=== PATIENT | female | born 1980 | race African-American/Black ===

== ENCOUNTER 2018-12-09 17:43 | Emergency (ER) | payer BC, OTHER ==
[~2018-12-09] VITALS: Ht 162.6 cm; Wt 95.7 kg
[~2018-12-09 17:43] MED LIST: ASACOL HD800 MG PO; IBUPROFEN600 MG PO; NORCO 10-325 T1 EACH PO; SIMETHICONE80 MG PO
--- OUTSIDE RECORDS SUMMARY | 2018-12-09 17:47 | XMS REPORT | Encounter Summary ---
Author Organization Unknown Address [address] [place] [id number] Phone [phone] Care Team Providers Care Panel Sewer Name Role Phone Dr. Ayaan Rasheed 3 [phone] Reason for Visit Ulcerative colitis Instructions 1. Body mass index 30+ - obesity body mass index: care instructions learning about healthy weight 2. Sickle cell trait 3. Ulcerative colitis 4. Insomnia amitriptyline 50 mg tablet Discussion Note: None recorded. Plan of Care Reminders Provider Appointments None recorded. Lab None recorded. Referral None recorded. Procedures None recorded. Surgeries None recorded. Imaging None recorded. Medications Name Start Date amitriptyline amitriptyline 50 mg tablet Take 1 tablet every day by oral route. mesalamine mesalamine 800 mg tablet,delayed release Take 1 tablet 3 times a day by oral route. Medications Administered None recorded. Vitals Height Weight BMI Blood Pressure 5 ft 3.5 in 211 lbs 36.8 kg/m2 130/70 mm[Hg] Lab Results None recorded. Allergies Code Code System Name Reaction Severity Status Onset 706399 RxNorm Augmentin Hives Moderate to Severe Active Problems Name Status Onset Date Source Ulcerative Colitis Active 12/03/2018 Procedures Date Name Performed by 05/11/2018 Appendectomy Information not available 05/11/2016 Hysterectomy (Partial) Information not available 05/11/2009 Tubal Ligation Information not available Vaccine List Vaccine Type tetanus toxoid, unspecified formulation 05/11/2015 Social History Tobacco Smoking Status Never Smoker Past Encounters 12/03/2018 Body Mass Index 30+ - Obesity; Sickle Cell Trait; Ulcerative Colitis; Insomnia Ayaan Rasheed MD: [facility] [address] [facility] [address], [place] [address], Ph. History of Present Illness Note:PT here to establish care.<div>She was diagnosed with Ulcerative colitis in 2000. Its under control. She is following with gastro Dr Tran. She did colonoscopy in which was good. </div><div>she has hx anxiety , also insomnia. she takes amitriptyline</div> Review of Systems:ROS as noted in the HPI Review of Systems None recorded. Physical Exam General Adult Exam (Female) Reported By: Patient Operations Boardman: Operations Boardman: present Constitutional: General Appearance: healthy-appearing Psychiatric: Insight: good judgement. Mental Status: active and alert. Orientation: to time Head: Head: normocephalic Eyes: Lids and Conjunctivae: non-injected. Pupils: PERRLA. EOM: EOMI ENMT: Ears: no lesions on external ear. Oropharynx: moist mucous membranes Neck: Neck: supple. Lymph Nodes: no cervical LAD. Thyroid: no enlargement Lungs: Respiratory effort: no dyspnea. Auscultation: breath sounds normal Cardiovascular: Heart Auscultation: RRR. Pulses including femoral / pedal: normal throughout Abdomen: Bowel Sounds: normal. Inspection and Palpation: soft, non-distended, no tenderness. Hernia: none palpable Musculoskeletal:: Motor Strength and Tone: normal motor strength. Joints, Bones, and Muscles: normal movement of all extremities. Extremities: no edema Neurologic: Gait and Station: normal gait. Cranial Nerves: grossly intact. Sensation: grossly intact. Reflexes: DTRs 2+ bilaterally throughout. Coordination and Cerebellum: no tremor Skin: Inspection and palpation: no rash. Nails: normal Back: Thoracolumbar Appearance: normal curvature
--- OUTSIDE RECORDS SUMMARY | 2018-12-09 17:47 | XMS REPORT ---
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 Allergies, Adverse Reactions, Alerts Allergy Name Allergy Type Status Severity Reaction(s) Onset Date Inactive Date Treating Clinician Comments amoxicillin trihydrate DA Active MO 2018-10-28 00:00:00 potassium clavulanate DA Active MO 2018-10-28 00:00:00 amoxicillin trihydrate DA Active MO 2018-05-21 00:00:00 potassium clavulanate DA Active MO 2018-05-21 00:00:00 amoxicillin trihydrate DA Active MO 2012-12-28 00:00:00 potassium clavulanate DA Active MO 2012-12-28 00:00:00 Medications This patient has no known medications. 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 History of inflammatory bowel disease/UC. Previous hysterectomy. Previous appendectomy. COMPARISON EXAM(S): Previous CT scans of 10/28/2018, 05/30/2018, and 05/21/2018. TECHNIQUE: Axial images were obtained of the abdomen and pelvis from the domes of the diaphragm to the symphysis pubis following intravenous injection of 100 ml's Isovue and oral administration of 10 ml's Gastrografin diluted with water. Coronal and sagittal reconstructions were generated. DOSE: CT imaging performed at this location utilizes radiation dose optimization technique which includes one or more of the followin) Automated exposure control; 2) Adjustment of the mA and/or kV according to patient's size; 3) Use of iterative reconstruction techniques. DLP (mGy-cm): 572 FINDINGS: The lung bases and pleural spaces are clear. The liver, spleen, adrenal glands, pancreas and kidneys have a normal appearance. The gallbladder is normal in size. The previously identified regions of bowel wall thickening in the colon have all resolved. The colonic wall and small bowel wall are normal on the current examination. No evidence of bowel dilatation. No free air, free fluid or peritoneal abscesses. Since 10/28/2018, a right adnexal cyst has developed measuring up to 6 cm. Anterior abdominal wall is intact. Bone windows show no suspicious blastic or lytic lesions. IMPRESSION: 1. Right adnexal cyst measuring up to 6 cm is new compared to 10/28/2018. This likely represents a follicular cyst. Follow-up pelvic ultrasound is recommended in 6-9 weeks to make certain that this resolves. 2. Resolution of colonic wall thickening when compared to prior studies dating back to May 2018. 3. Prior appendectomy. 4. Otherwise unremarkable examination of the abdomen and pelvis. 5. No other change compared to 10/28/2018. PAGE 1 Signed Report (CONTINUED) Name: YAYA SHIN [facility] : 1980 Age/S: 38 / F [address] [place] [address] Unit #: [id number] Loc: [place] [address] Phys: Glenna Mason NP Acct: [id number] Dis Date: Status: REG ER PHONE #: [phone] Exam Date: 11/19/2018 181 FAX #: [phone] Reason: upper abd pain, h/o ibs EXAMS: CPT CODE: [id number] CT ABD PELVIS W/CONT 33720 <Continued> SL:01 at 1846 Reported and signed by: Sudheer Harrison M.D. CC: Ancelmo Jaimes MD; Glenna Mason NP Technologist:RT Noy(R) CTDI: DLP: Trnscb Date/Time: 11/19/2018 (1845) [email or web address] Orig Print D/T: S: 11/19/2018 (1849) PAGE 2 Signed Report CBC W/AUTO DIFF 2018-11-19 16:36:00 WHITE BLOOD CELL (test code=WBC) 15.65 x10 3/uL 4.5-11.0 RED BLOOD CELL (test code=RBC) 4.57 x10 6/uL 3.54-5.02 HEMOGLOBIN (test code=HGB) 10.5 g/dL 11.0-15.0 HEMATOCRIT (test code=HCT) 33.3 % 33.0-45.0 MEAN CELL VOLUME (test code=MCV) 72.9 fL 81.0-99.0 MEAN CELL HGB (test code=MCH) 23.0 pg 27.0-33.0 MEAN CELL HGB CONCETRATION (test code=MCHC) 31.5 g/dL 33.0-37.0 RED CELL DISTRIBUTION WIDTH CV (test code=RDW) 18.3 % 11.5-14.5 RED CELL DISTRIBUTION WIDTH SD (test code=RDW-SD) 47.8 fL 37.0-54.0 PLATELET COUNT (test code=PLT) 388 x10 3/uL 150-400 MEAN PLATELET VOLUME (test code=MPV) 9.5 fL 7.0-9.0 NEUTROPHIL % (test code=NT%) 65.4 % 56.0-77.0 IMMATURE GRANULOCYTE % (test code=IG%) 0.6 % 0.0-2.0 LYMPHOCYTE % (test code=LY%) 23.4 % 14.0-32.0 MONOCYTE % (test code=MO%) 8.6 % 4.8-9.0 EOSINOPHIL % (test code=EO%) 1.6 % 0.3-3.7 BASOPHIL % (test code=BA%) 0.4 % 0.0-2.0 NUCLEATED RBC % (test code=NRBC%) 0.0 % 0-0 NEUTROPHIL # (test code=NT#) 10.23 x10 3/uL 2.0-7.6 IMMATURE GRANULOCYTE # (test code=IG#) 0.09 x10 3/uL 0.00-0.03 LYMPHOCYTE # (test code=LY#) 3.66 x10 3/uL 1.0-3.8 MONOCYTE # (test code=MO#) 1.35 x10 3/uL 0.1-0.8 EOSINOPHIL # (test code=EO#) 0.25 x10 3/uL 0.0-0.2 BASOPHIL # (test code=BA#) 0.07 x10 3/uL 0.0-0.2 NUCLEATED RBC # (test code=NRBC#) 0.00 x10 3/uL 0.0-0.1 MANUAL DIFF REQUIRED (test code=MDIFF) NO RBC [id number] 16:36:00* Test Item Value Reference Range Comments ANISOCYTOSIS (test code=ANISO) CBC W/AUTO [id number] 16:36:00* Test Item Value Reference Range Comments WHITE BLOOD CELL (test code=WBC) 15.65 x10 3/uL 4.5-11.0 RED BLOOD CELL (test code=RBC) 4.57 x10 6/uL 3.54-5.02 HEMOGLOBIN (test code=HGB) 10.5 g/dL 11.0-15.0 HEMATOCRIT (test code=HCT) 33.3 % 33.0-45.0 MEAN CELL VOLUME (test code=MCV) 72.9 fL 81.0-99.0 MEAN CELL HGB (test code=MCH) 23.0 pg 27.0-33.0 MEAN CELL HGB CONCETRATION (test code=MCHC) 31.5 g/dL 33.0-37.0 RED CELL DISTRIBUTION WIDTH CV (test code=RDW) 18.3 % 11.5-14.5 RED CELL DISTRIBUTION WIDTH SD (test code=RDW-SD) 47.8 fL 37.0-54.0 PLATELET COUNT (test code=PLT) 388 x10 3/uL 150-400 MEAN PLATELET VOLUME (test code=MPV) 9.5 fL 7.0-9.0 NEUTROPHIL % (test code=NT%) 65.4 % 56.0-77.0 IMMATURE GRANULOCYTE % (test code=IG%) 0.6 % 0.0-2.0 LYMPHOCYTE % (test code=LY%) 23.4 % 14.0-32.0 MONOCYTE % (test code=MO%) 8.6 % 4.8-9.0 EOSINOPHIL % (test code=EO%) 1.6 % 0.3-3.7 BASOPHIL % (test code=BA%) 0.4 % 0.0-2.0 NUCLEATED RBC % (test code=NRBC%) 0.0 % 0-0 NEUTROPHIL # (test code=NT#) 10.23 x10 3/uL 2.0-7.6 IMMATURE GRANULOCYTE # (test code=IG#) 0.09 x10 3/uL 0.00-0.03 LYMPHOCYTE # (test code=LY#) 3.66 x10 3/uL 1.0-3.8 MONOCYTE # (test code=MO#) 1.35 x10 3/uL 0.1-0.8 EOSINOPHIL # (test code=EO#) 0.25 x10 3/uL 0.0-0.2 BASOPHIL # (test code=BA#) 0.07 x10 3/uL 0.0-0.2 NUCLEATED RBC # (test code=NRBC#) 0.00 x10 3/uL 0.0-0.1 MANUAL DIFF REQUIRED (test code=MDIFF) NO RBC [id number] 16:36:00* Test Item Value Reference Range Comments POLYCHROMASIA (test code=POLC) 2+ ANISOCYTOSIS (test code=ANISO) 2+ MICROCYTOSIS (test code=MICR) 2+ CBC W/AUTO [id number] 16:36:00* Test Item Value Reference Range Comments WHITE BLOOD CELL (test code=WBC) 15.65 x10 3/uL 4.5-11.0 RED BLOOD CELL (test code=RBC) 4.57 x10 6/uL 3.54-5.02 HEMOGLOBIN (test code=HGB) 10.5 g/dL 11.0-15.0 HEMATOCRIT (test code=HCT) 33.3 % 33.0-45.0 MEAN CELL VOLUME (test code=MCV) 72.9 fL 81.0-99.0 MEAN CELL HGB (test code=MCH) 23.0 pg 27.0-33.0 MEAN CELL HGB CONCETRATION (test code=MCHC) 31.5 g/dL 33.0-37.0 RED CELL DISTRIBUTION WIDTH CV (test code=RDW) 18.3 % 11.5-14.5 RED CELL DISTRIBUTION WIDTH SD (test code=RDW-SD) 47.8 fL 37.0-54.0 PLATELET COUNT (test code=PLT) 388 x10 3/uL 150-400 MEAN PLATELET VOLUME (test code=MPV) 9.5 fL 7.0-9.0 NEUTROPHIL % (test code=NT%) 65.4 % 56.0-77.0 IMMATURE GRANULOCYTE % (test code=IG%) 0.6 % 0.0-2.0 LYMPHOCYTE % (test code=LY%) 23.4 % 14.0-32.0 MONOCYTE % (test code=MO%) 8.6 % 4.8-9.0 EOSINOPHIL % (test code=EO%) 1.6 % 0.3-3.7 BASOPHIL % (test code=BA%) 0.4 % 0.0-2.0 NUCLEATED RBC % (test code=NRBC%) 0.0 % 0-0 NEUTROPHIL # (test code=NT#) 10.23 x10 3/uL 2.0-7.6 IMMATURE GRANULOCYTE # (test code=IG#) 0.09 x10 3/uL 0.00-0.03 LYMPHOCYTE # (test code=LY#) 3.66 x10 3/uL 1.0-3.8 MONOCYTE # (test code=MO#) 1.35 x10 3/uL 0.1-0.8 EOSINOPHIL # (test code=EO#) 0.25 x10 3/uL 0.0-0.2 BASOPHIL # (test code=BA#) 0.07 x10 3/uL 0.0-0.2 NUCLEATED RBC # (test code=NRBC#) 0.00 x10 3/uL 0.0-0.1 MANUAL DIFF REQUIRED (test code=MDIFF) NO RBC [id number] 16:36:00* Test Item Value Reference Range Comments ANISOCYTOSIS (test code=ANISO) COMPREHENSIVE METABOLIC [id number] 16:35:00* Test Item Value Reference Range Comments SODIUM (test code=NA) 137 mEq/L 134-147 POTASSIUM (test code=K) 5.1 mEq/L 3.4-5.0 SPECIMEN 1+ HEMOLYZED.Results known to be adversely affected by hemolysis are: Potassium Magnesium LDH Phosphorus CHLORIDE (test code=CL) 107 mEq/L 100-108 CARBON DIOXIDE (test code=CO2) 26 mEq/L 21-33 ANION GAP (test code=GAP) 9 0-20 GLUCOSE (test code=GLU) 77 mg/dL 70-110 BLOOD UREA NITROGEN (test code=BUN) 13 mg/dL 7-18 GLOMERULAR FILTRATION RATE (test code=GFR) 83.9 95-105 Units of measure=ml/min/1.73 m2 CREATININE (test code=CREAT) 0.9 mg/dL 0.6-1.3 TOTAL PROTEIN (test code=PROT) 7.6 g/dL 6.4-8.2 ALBUMIN (test code=ALB) 3.30 g/dL 3.4-5.0 CALCIUM (test code=CA) 8.7 mg/dL 8.0-10.5 BILIRUBIN TOTAL (test code=BILT) 0.20 mg/dL 0.0-1.0 SGOT/AST (test code=AST) 24 IUnit/L 15-37 SGPT/ALT (test code=ALT) 13 IUnit/L 15-65 ALKALINE PHOSPHATASE TOTAL (test code=ALKP) 45 IUnit/L 20-125 [id number] 16:35:00* Test Item Value Reference Range Comments LIPASE (test code=LIP) 129 IUnit/L 73-393 [id number] 16:35:00* Test Item Value Reference Range Comments TROPONIN-I (test code=TROPI) < 0.015 ng/mL 0.000-0.045 Negative: <=0.045 Positive: >=0.046 Correlation with serial results, other cardiac markers andclinical findings is necessary to determine the clinicalsignificance of this result. Results using different methodologies should not be comparedto one another as quantitative results may vary by method. CBC W/AUTO [id number] 16:09:00* Test Item Value Reference Range Comments WHITE BLOOD CELL (test code=WBC) 15.65 x10 3/uL 4.5-11.0 RED BLOOD CELL (test code=RBC) 4.57 x10 6/uL 3.54-5.02 HEMOGLOBIN (test code=HGB) 10.5 g/dL 11.0-15.0 HEMATOCRIT (test code=HCT) 33.3 % 33.0-45.0 MEAN CELL VOLUME (test code=MCV) 72.9 fL 81.0-99.0 MEAN CELL HGB (test code=MCH) 23.0 pg 27.0-33.0 MEAN CELL HGB CONCETRATION (test code=MCHC) 31.5 g/dL 33.0-37.0 RED CELL DISTRIBUTION WIDTH CV (test code=RDW) 18.3 % 11.5-14.5 RED CELL DISTRIBUTION WIDTH SD (test code=RDW-SD) 47.8 fL 37.0-54.0 PLATELET COUNT (test code=PLT) 388 x10 3/uL 150-400 MEAN PLATELET VOLUME (test code=MPV) 9.5 fL 7.0-9.0 NEUTROPHIL % (test code=NT%) 65.4 % 56.0-77.0 IMMATURE GRANULOCYTE % (test code=IG%) 0.6 % 0.0-2.0 LYMPHOCYTE % (test code=LY%) 23.4 % 14.0-32.0 MONOCYTE % (test code=MO%) 8.6 % 4.8-9.0 EOSINOPHIL % (test code=EO%) 1.6 % 0.3-3.7 BASOPHIL % (test code=BA%) 0.4 % 0.0-2.0 NUCLEATED RBC % (test code=NRBC%) 0.0 % 0-0 NEUTROPHIL # (test code=NT#) 10.23 x10 3/uL 2.0-7.6 IMMATURE GRANULOCYTE # (test code=IG#) 0.09 x10 3/uL 0.00-0.03 LYMPHOCYTE # (test code=LY#) 3.66 x10 3/uL 1.0-3.8 MONOCYTE # (test code=MO#) 1.35 x10 3/uL 0.1-0.8 EOSINOPHIL # (test code=EO#) 0.25 x10 3/uL 0.0-0.2 BASOPHIL # (test code=BA#) 0.07 x10 3/uL 0.0-0.2 NUCLEATED RBC # (test code=NRBC#) 0.00 x10 3/uL 0.0-0.1 MANUAL DIFF REQUIRED (test code=MDIFF) NO URINALYSIS [id number] 15:19:00* Test Item Value Reference Range Comments UA COLOR (test code=COLU) STRAW YEL/STRAW UA APPEARANCE (test code=APPU) CLEAR CLEAR UA GLUCOSE DIPSTICK (test code=DGLUU) NEGATIVE NEGATIVE UA BILIRUBIN DIPSTICK (test code=BILU) NEGATIVE NEGATIVE UA KETONE DIPSTICK (test code=KETU) NEGATIVE NEGATIVE UA SPECIFIC GRAVITY (test code=SGU) 1.013 1.005-1.030 UA BLOOD DIPSTICK (test code=ALY) 1+ NEGATIVE UA PH DIPSTICK (test code=MILAGRO) 7.0 5.0-7.0 UA PROTEIN DIPSTICK (test code=PROU) NEGATIVE NEGATIVE UA UROBILINIOGEN DIPSTICK (test code=URO) 0.2 mg/dL 0.2-1.0 UA NITRITE DIPSTICK (test code=ALVINO) NEGATIVE NEGATIVE UA LEUKOCYTE ESTERASE DIPSTICK (test code=LEUU) NEGATIVE NEGATIVE UA WBC (test code=WBCU) 0-3 WBC/HPF 0-3 UA RBC (test code=RBCU) 4-10 RBC/HPF 0-3 UA BACTERIA (test code=BACU) TRACE /HPF NONE SEEN UA SQUAMOUS CELLS (test code=SQU) 0-5 /HPF NONE SEEN UA MUCUS (test code=MUCU) TRACE /LPF NONE SEEN COMMENTS: Clean Catch- US ABDOMEN [id number] 15:15:00 Name: KIPYAYALE [facility] : 1980 Age/S: 38 / F [address] [place] [address] Unit #: [id number] Loc: [place] [address] Phys: Ancelmo Jaimes MD Acct: [id number] Dis Date: Status: REG ER PHONE #: [phone] Exam Date: 11/19/2018 1509 FAX #: [phone] Reason: Abdominal Pain EXAMS: CPT CODE: [id number] US ABDOMEN LTD 18843 EXAM: US ABDOMEN LIMITED DATE: 11/19/2018 2:04 PM : 1980; Age: 38 years y/o Female INDICATION: Abdominal Pain COMPARISON: CT abdomen and pelvis October 28, 2018 TECHNIQUE: Multiplanar grayscale and color Doppler ultrasound of the right upper quadrant. FINDINGS: Liver: Liver is borderline in size. Echogenicity: Normal. Surface: Normal. Mass (size and location): None. Main portal vein: Grossly normal Bile ducts: Common bile duct diameter: 0.4 cm. Intrahepatic ducts: Normal. Gallbladder: Gallstones: None. Gallbladder sludge: None. Gallbladder wall: 0.2 cm. Pancreas: Head and uncinate process: Normal Body: Normal. Tail: Normal Right kidney: Size: 9.7 cm. Hydronephrosis: None. Echogenicity: Normal. Calculi: None. Cy sts/Masses: None. Other: None. IMPRESSION: Liver is borderline in size otherwise no acute abnormality. PAGE 1 Signed Report (CONTINUED) Name: ERIC SHIN [facility] : 1980 Age/S: 38 / F [address] [place] [address] Unit #: [id number] Loc: [place] [address] Phys: Ancelmo Jaimes MD Acct: [id number] Dis Date: Status: REG ER PHONE #: [phone] Exam Date: 11/19/2018 1509 FAX #: [phone] Reason: Ab dominal Pain EXAMS: CPT CODE: [id number] US ABDOMEN LTD 51867 <Continued> SL: [id number] at 1515 Reported and signed by: Vargas Mcginnis D.O. CC: Ancelmo Jaimes MD Technologist: Kaiden Bray RDMS(A)(OB) Trnscb Date/Time: 11/19/2018 (7836) [email or web address] Orig Print D/T: S: 11/19/2018 (6655) Probe: PAGE 2 Signed Report - XR KNEE 3 V [id number] 13:56:00 FAX: Eriberto Lin MD [phone] [place]: O St: REG FAX: Ayaan Martins MD [phone] Name: YAYA SHIN [facility] : 1980 Age/S: 38/F [address] [facility] Unit #: [id number] Loc: [place] [address] Phys: Eriberto Richmond MD Acct: [id number] Dis Date: Status: REG RCR PHONE #: [phone] Exam Date: 11/16/2018 1352 FAX #: [phone] Reason: PAIN EXAMS: CPT CODE: [id number] XR KNEE [address] [place] [address] TECHNIQUE - XR KNEE 3 V BI . COMPARISON: None pr ovided. HISTORY: 38 years Female PAIN FINDINGS: Bones: No acute fracture. No dislocation. No suspicious bone lesion. Joints: Mild osteophytes. Mild joint space reduction. No subchondral bone lesions. No bony erosions. Soft tissues: No significant abnormalities. Other: T iny right knee effusion. IMPRESSION: No acute fracture. Mild osteoarthritic changes. at 4002 Reported and signed by: Juan Pablo Yanes M.D. CC: Eriberto Richmond MD; Ayaan Rasheed MD Technologist: Kina Franklin RT(R) Trnscrd Date/Time/By: 11/16/2018 (1775) : By: [email or web address] Orig Print D/ T: S: 11/16/2018 (1400) PAGE 1 Si gned Report CBC W/AUTO [id number] 16:23:00* Test Item Value Reference Range Comments WHITE BLOOD CELL (test code=WBC) 15.91 x10 3/uL 4.5-11.0 RED BLOOD CELL (test code=RBC) 4.70 x10 6/uL 3.54-5.02 HEMOGLOBIN (test code=HGB) 10.7 g/dL 11.0-15.0 HEMATOCRIT (test code=HCT) 34.7 % 33.0-45.0 MEAN CELL VOLUME (test code=MCV) 73.8 fL 81.0-99.0 MEAN CELL HGB (test code=MCH) 22.8 pg 27.0-33.0 MEAN CELL HGB CONCETRATION (test code=MCHC) 30.8 g/dL 33.0-37.0 RED CELL DISTRIBUTION WIDTH CV (test code=RDW) 18.3 % 11.5-14.5 RED CELL DISTRIBUTION WIDTH SD (test code=RDW-SD) 48.8 fL 37.0-54.0 PLATELET COUNT (test code=PLT) 412 x10 3/uL 150-400 MEAN PLATELET VOLUME (test code=MPV) 10.0 fL 7.0-9.0 NEUTROPHIL % (test code=NT%) 69.8 % 56.0-77.0 IMMATURE GRANULOCYTE % (test code=IG%) 0.6 % 0.0-2.0 LYMPHOCYTE % (test code=LY%) 22.2 % 14.0-32.0 MONOCYTE % (test code=MO%) 6.4 % 4.8-9.0 EOSINOPHIL % (test code=EO%) 0.6 % 0.3-3.7 BASOPHIL % (test code=BA%) 0.4 % 0.0-2.0 NUCLEATED RBC % (test code=NRBC%) 0.0 % 0-0 NEUTROPHIL # (test code=NT#) 11.11 x10 3/uL 2.0-7.6 IMMATURE GRANULOCYTE # (test code=IG#) 0.09 x10 3/uL 0.00-0.03 LYMPHOCYTE # (test code=LY#) 3.53 x10 3/uL 1.0-3.8 MONOCYTE # (test code=MO#) 1.02 x10 3/uL 0.1-0.8 EOSINOPHIL # (test code=EO#) 0.09 x10 3/uL 0.0-0.2 BASOPHIL # (test code=BA#) 0.07 x10 3/uL 0.0-0.2 NUCLEATED RBC # (test code=NRBC#) 0.00 x10 3/uL 0.0-0.1 MANUAL DIFF REQUIRED (test code=MDIFF) NO RBC [id number] 16:23:00* Test Item Value Reference Range Comments ANISOCYTOSIS (test code=ANISO) SED RATE [id number] 16:23:00* Test Item Value Reference Range Comments SED RATE WESTERGREN (test code=SEDW) 15 mm/hr 0-20 CBC W/AUTO [id number] 16:23:00* Test Item Value Reference Range Comments WHITE BLOOD CELL (test code=WBC) 15.91 x10 3/uL 4.5-11.0 RED BLOOD CELL (test code=RBC) 4.70 x10 6/uL 3.54-5.02 HEMOGLOBIN (test code=HGB) 10.7 g/dL 11.0-15.0 HEMATOCRIT (test code=HCT) 34.7 % 33.0-45.0 MEAN CELL VOLUME (test code=MCV) 73.8 fL 81.0-99.0 MEAN CELL HGB (test code=MCH) 22.8 pg 27.0-33.0 MEAN CELL HGB CONCETRATION (test code=MCHC) 30.8 g/dL 33.0-37.0 RED CELL DISTRIBUTION WIDTH CV (test code=RDW) 18.3 % 11.5-14.5 RED CELL DISTRIBUTION WIDTH SD (test code=RDW-SD) 48.8 fL 37.0-54.0 PLATELET COUNT (test code=PLT) 412 x10 3/uL 150-400 MEAN PLATELET VOLUME (test code=MPV) 10.0 fL 7.0-9.0 NEUTROPHIL % (test code=NT%) 69.8 % 56.0-77.0 IMMATURE GRANULOCYTE % (test code=IG%) 0.6 % 0.0-2.0 LYMPHOCYTE % (test code=LY%) 22.2 % 14.0-32.0 MONOCYTE % (test code=MO%) 6.4 % 4.8-9.0 EOSINOPHIL % (test code=EO%) 0.6 % 0.3-3.7 BASOPHIL % (test code=BA%) 0.4 % 0.0-2.0 NUCLEATED RBC % (test code=NRBC%) 0.0 % 0-0 NEUTROPHIL # (test code=NT#) 11.11 x10 3/uL 2.0-7.6 IMMATURE GRANULOCYTE # (test code=IG#) 0.09 x10 3/uL 0.00-0.03 LYMPHOCYTE # (test code=LY#) 3.53 x10 3/uL 1.0-3.8 MONOCYTE # (test code=MO#) 1.02 x10 3/uL 0.1-0.8 EOSINOPHIL # (test code=EO#) 0.09 x10 3/uL 0.0-0.2 BASOPHIL # (test code=BA#) 0.07 x10 3/uL 0.0-0.2 NUCLEATED RBC # (test code=NRBC#) 0.00 x10 3/uL 0.0-0.1 MANUAL DIFF REQUIRED (test code=MDIFF) NO RBC [id number] 16:23:00* Test Item Value Reference Range Comments POLYCHROMASIA (test code=POLC) SLIGHT ANISOCYTOSIS (test code=ANISO) 1+ MICROCYTOSIS (test code=MICR) 1+ SED RATE [id number] 16:23:00* Test Item Value Reference Range Comments SED RATE WESTERGREN (test code=SEDW) 15 mm/hr 0-20 HEPATIC FUNCTION [id number] 15:29:00* Test Item Value Reference Range Comments TOTAL PROTEIN (test code=PROT) 8.0 g/dL 6.4-8.2 ALBUMIN (test code=ALB) 3.60 g/dL 3.4-5.0 BILIRUBIN TOTAL (test code=BILT) 0.50 mg/dL 0.0-1.0 BILIRUBIN DIRECT (test code=BILD) < 0.10 MG/DL 0.0-0.30 BILIRUBIN INDIRECT (test code=BILIND) 0.40 MG/DL SGOT/AST (test code=AST) 19 IUnit/L 15-37 SGPT/ALT (test code=ALT) 13 IUnit/L 15-65 ALKALINE PHOSPHATASE TOTAL (test code=ALKP) 51 IUnit/L 20-125 [id number] 15:29:00* Test Item Value Reference Range Comments LIPASE (test code=LIP) 136 IUnit/L 73-393 URINALYSIS [id number] 15:21:00* Test Item Value Reference Range Comments UA COLOR (test code=COLU) YELLOW YEL/STRAW UA APPEARANCE (test code=APPU) CLEAR CLEAR UA GLUCOSE DIPSTICK (test code=DGLUU) NEGATIVE NEGATIVE UA BILIRUBIN DIPSTICK (test code=BILU) NEGATIVE NEGATIVE UA KETONE DIPSTICK (test code=KETU) NEGATIVE NEGATIVE UA SPECIFIC GRAVITY (test code=SGU) 1.017 1.005-1.030 UA BLOOD DIPSTICK (test code=ALY) 1+ NEGATIVE UA PH DIPSTICK (test code=MILAGRO) 5.0 5.0-7.0 UA PROTEIN DIPSTICK (test code=PROU) NEGATIVE NEGATIVE UA UROBILINIOGEN DIPSTICK (test code=URO) 0.2 mg/dL 0.2-1.0 UA NITRITE DIPSTICK (test code=ALVINO) NEGATIVE NEGATIVE UA LEUKOCYTE ESTERASE DIPSTICK (test code=LEUU) NEGATIVE NEGATIVE UA WBC (test code=WBCU) 0-3 WBC/HPF 0-3 UA RBC (test code=RBCU) 4-10 RBC/HPF 0-3 UA BACTERIA (test code=BACU) TRACE /HPF NONE SEEN UA SQUAMOUS CELLS (test code=SQU) 0-5 /HPF NONE SEEN UA MUCUS (test code=MUCU) TRACE /LPF NONE SEEN COMMENTS: Clean CatchCBC W/AUTO [id number] 15:16:00* Test Item Value Reference Range Comments WHITE BLOOD CELL (test code=WBC) 15.91 x10 3/uL 4.5-11.0 RED BLOOD CELL (test code=RBC) 4.70 x10 6/uL 3.54-5.02 HEMOGLOBIN (test code=HGB) 10.7 g/dL 11.0-15.0 HEMATOCRIT (test code=HCT) 34.7 % 33.0-45.0 MEAN CELL VOLUME (test code=MCV) 73.8 fL 81.0-99.0 MEAN CELL HGB (test code=MCH) 22.8 pg 27.0-33.0 MEAN CELL HGB CONCETRATION (test code=MCHC) 30.8 g/dL 33.0-37.0 RED CELL DISTRIBUTION WIDTH CV (test code=RDW) 18.3 % 11.5-14.5 RED CELL DISTRIBUTION WIDTH SD (test code=RDW-SD) 48.8 fL 37.0-54.0 PLATELET COUNT (test code=PLT) 412 x10 3/uL 150-400 MEAN PLATELET VOLUME (test code=MPV) 10.0 fL 7.0-9.0 NEUTROPHIL % (test code=NT%) 69.8 % 56.0-77.0 IMMATURE GRANULOCYTE % (test code=IG%) 0.6 % 0.0-2.0 LYMPHOCYTE % (test code=LY%) 22.2 % 14.0-32.0 MONOCYTE % (test code=MO%) 6.4 % 4.8-9.0 EOSINOPHIL % (test code=EO%) 0.6 % 0.3-3.7 BASOPHIL % (test code=BA%) 0.4 % 0.0-2.0 NUCLEATED RBC % (test code=NRBC%) 0.0 % 0-0 NEUTROPHIL # (test code=NT#) 11.11 x10 3/uL 2.0-7.6 IMMATURE GRANULOCYTE # (test code=IG#) 0.09 x10 3/uL 0.00-0.03 LYMPHOCYTE # (test code=LY#) 3.53 x10 3/uL 1.0-3.8 MONOCYTE # (test code=MO#) 1.02 x10 3/uL 0.1-0.8 EOSINOPHIL # (test code=EO#) 0.09 x10 3/uL 0.0-0.2 BASOPHIL # (test code=BA#) 0.07 x10 3/uL 0.0-0.2 NUCLEATED RBC # (test code=NRBC#) 0.00 x10 3/uL 0.0-0.1 MANUAL DIFF REQUIRED (test code=MDIFF) NO RBC [id number] 15:16:00* Test Item Value Reference Range Comments ANISOCYTOSIS (test code=ANISO) SED RATE [id number] 15:16:00* Test Item Value Reference Range Comments SED RATE JOSEREN (test code=SEDW) mm/hr 0-20 CBC W/AUTO [id number] 15:15:00* Test Item Value Reference Range Comments WHITE BLOOD CELL (test code=WBC) 15.91 x10 3/uL 4.5-11.0 RED BLOOD CELL (test code=RBC) 4.70 x10 6/uL 3.54-5.02 HEMOGLOBIN (test code=HGB) 10.7 g/dL 11.0-15.0 HEMATOCRIT (test code=HCT) 34.7 % 33.0-45.0 MEAN CELL VOLUME (test code=MCV) 73.8 fL 81.0-99.0 MEAN CELL HGB (test code=MCH) 22.8 pg 27.0-33.0 MEAN CELL HGB CONCETRATION (test code=MCHC) 30.8 g/dL 33.0-37.0 RED CELL DISTRIBUTION WIDTH CV (test code=RDW) 18.3 % 11.5-14.5 RED CELL DISTRIBUTION WIDTH SD (test code=RDW-SD) 48.8 fL 37.0-54.0 PLATELET COUNT (test code=PLT) 412 x10 3/uL 150-400 MEAN PLATELET VOLUME (test code=MPV) 10.0 fL 7.0-9.0 NEUTROPHIL % (test code=NT%) 69.8 % 56.0-77.0 IMMATURE GRANULOCYTE % (test code=IG%) 0.6 % 0.0-2.0 LYMPHOCYTE % (test code=LY%) 22.2 % 14.0-32.0 MONOCYTE % (test code=MO%) 6.4 % 4.8-9.0 EOSINOPHIL % (test code=EO%) 0.6 % 0.3-3.7 BASOPHIL % (test code=BA%) 0.4 % 0.0-2.0 NUCLEATED RBC % (test code=NRBC%) 0.0 % 0-0 NEUTROPHIL # (test code=NT#) 11.11 x10 3/uL 2.0-7.6 IMMATURE GRANULOCYTE # (test code=IG#) 0.09 x10 3/uL 0.00-0.03 LYMPHOCYTE # (test code=LY#) 3.53 x10 3/uL 1.0-3.8 MONOCYTE # (test code=MO#) 1.02 x10 3/uL 0.1-0.8 EOSINOPHIL # (test code=EO#) 0.09 x10 3/uL 0.0-0.2 BASOPHIL # (test code=BA#) 0.07 x10 3/uL 0.0-0.2 NUCLEATED RBC # (test code=NRBC#) 0.00 x10 3/uL 0.0-0.1 MANUAL DIFF REQUIRED (test code=MDIFF) NO SED RATE [id number] 15:15:00* Test Item Value Reference Range Comments SED RATE WESTERGREN (test code=SEDW) mm/hr 0-20 CBC W/AUTO [id number] 15:15:00* Test Item Value Reference Range Comments WHITE BLOOD CELL (test code=WBC) 15.91 x10 3/uL 4.5-11.0 RED BLOOD CELL (test code=RBC) 4.70 x10 6/uL 3.54-5.02 HEMOGLOBIN (test code=HGB) 10.7 g/dL 11.0-15.0 HEMATOCRIT (test code=HCT) 34.7 % 33.0-45.0 MEAN CELL VOLUME (test code=MCV) 73.8 fL 81.0-99.0 MEAN CELL HGB (test code=MCH) 22.8 pg 27.0-33.0 MEAN CELL HGB CONCETRATION (test code=MCHC) 30.8 g/dL 33.0-37.0 RED CELL DISTRIBUTION WIDTH CV (test code=RDW) 18.3 % 11.5-14.5 RED CELL DISTRIBUTION WIDTH SD (test code=RDW-SD) 48.8 fL 37.0-54.0 PLATELET COUNT (test code=PLT) 412 x10 3/uL 150-400 MEAN PLATELET VOLUME (test code=MPV) 10.0 fL 7.0-9.0 NEUTROPHIL % (test code=NT%) 69.8 % 56.0-77.0 IMMATURE GRANULOCYTE % (test code=IG%) 0.6 % 0.0-2.0 LYMPHOCYTE % (test code=LY%) 22.2 % 14.0-32.0 MONOCYTE % (test code=MO%) 6.4 % 4.8-9.0 EOSINOPHIL % (test code=EO%) 0.6 % 0.3-3.7 BASOPHIL % (test code=BA%) 0.4 % 0.0-2.0 NUCLEATED RBC % (test code=NRBC%) 0.0 % 0-0 NEUTROPHIL # (test code=NT#) 11.11 x10 3/uL 2.0-7.6 IMMATURE GRANULOCYTE # (test code=IG#) 0.09 x10 3/uL 0.00-0.03 LYMPHOCYTE # (test code=LY#) 3.53 x10 3/uL 1.0-3.8 MONOCYTE # (test code=MO#) 1.02 x10 3/uL 0.1-0.8 EOSINOPHIL # (test code=EO#) 0.09 x10 3/uL 0.0-0.2 BASOPHIL # (test code=BA#) 0.07 x10 3/uL 0.0-0.2 NUCLEATED RBC # (test code=NRBC#) 0.00 x10 3/uL 0.0-0.1 MANUAL DIFF REQUIRED (test code=MDIFF) NO RBC [id number] 15:15:00* Test Item Value Reference Range Comments ANISOCYTOSIS (test code=ANISO) SED RATE [id number] 15:15:00* Test Item Value Reference Range Comments SED RATE WESTERGREN (test code=SEDW) mm/hr 0-20 CHEMISTRY 8 [id number] 14:41:00* Test Item Value Reference Range Comments ISTAT-SODIUM (test code=NAP) MMOL/L 134-147 ISTAT-POTASSIUM (test code=KP) MMOL/L 3.4-5.0 ISTAT-CHLORIDE (test code=CLP) MMOL/L 100-108 ISTAT CARBON DIOXIDE (test code=ISTAT-CO2) mmol/L 21-33 ISTAT CALCIUM IONIZED (test code=ISTAT-FLO) MG/DL 1.12-1.32 ISTAT-GLUCOSE (test code=GLUP) MG/DL 70-110 ISTAT-BUN (test code=BUNP) MG/DL 7-18 BEDSIDE CREATININE (test code=CREATBED) MG/DL 0.6-1.3 GLOMERULAR FILTRATION RATE POC (test code=GFRBED) 102 ML/MIN CHEMISTRY 8 [id number] 14:41:00* Test Item Value Reference Range Comments ISTAT-SODIUM (test code=NAP) 140 MMOL/L 134-147 ISTAT-POTASSIUM (test code=KP) 4.2 MMOL/L 3.4-5.0 ISTAT-CHLORIDE (test code=CLP) 105 MMOL/L 100-108 Performed by certified tile power shear operator at [facility] ISTAT CARBON DIOXIDE (test code=ISTAT-CO2) 28.0 mmol/L 21-33 ISTAT CALCIUM IONIZED (test code=ISTAT-FLO) 1.14 MG/DL 1.12-1.32 ISTAT-GLUCOSE (test code=GLUP) 78 MG/DL 70-110 ISTAT-BUN (test code=BUNP) 13 MG/DL 7-18 BEDSIDE CREATININE (test code=CREATBED) 0.8 MG/DL 0.6-1.3 GLOMERULAR FILTRATION RATE POC (test code=GFRBED) 102 ML/MIN CBC W/AUTO [id number] 11:41:00* Test Item Value Reference Range Comments WHITE BLOOD CELL (test code=WBC) 9.17 x10 3/uL 4.5-11.0 RED BLOOD CELL (test code=RBC) 4.36 x10 6/uL 3.54-5.02 HEMOGLOBIN (test code=HGB) 9.8 g/dL 11.0-15.0 HEMATOCRIT (test code=HCT) 31.7 % 33.0-45.0 MEAN CELL VOLUME (test code=MCV) 72.7 fL 81.0-99.0 MEAN CELL HGB (test code=MCH) 22.5 pg 27.0-33.0 MEAN CELL HGB CONCETRATION (test code=MCHC) 30.9 g/dL 33.0-37.0 RED CELL DISTRIBUTION WIDTH CV (test code=RDW) 17.6 % 11.5-14.5 RED CELL DISTRIBUTION WIDTH SD (test code=RDW-SD) 45.8 fL 37.0-54.0 PLATELET COUNT (test code=PLT) 359 x10 3/uL 150-400 MEAN PLATELET VOLUME (test code=MPV) 10.7 fL 7.0-9.0 NEUTROPHIL % (test code=NT%) 60.5 % 56.0-77.0 IMMATURE GRANULOCYTE % (test code=IG%) 0.2 % 0.0-2.0 LYMPHOCYTE % (test code=LY%) 29.4 % 14.0-32.0 MONOCYTE % (test code=MO%) 6.2 % 4.8-9.0 EOSINOPHIL % (test code=EO%) 3.3 % 0.3-3.7 BASOPHIL % (test code=BA%) 0.4 % 0.0-2.0 NUCLEATED RBC % (test code=NRBC%) 0.0 % 0-0 NEUTROPHIL # (test code=NT#) 5.54 x10 3/uL 2.0-7.6 IMMATURE GRANULOCYTE # (test code=IG#) 0.02 x10 3/uL 0.00-0.03 LYMPHOCYTE # (test code=LY#) 2.70 x10 3/uL 1.0-3.8 MONOCYTE # (test code=MO#) 0.57 x10 3/uL 0.1-0.8 EOSINOPHIL # (test code=EO#) 0.30 x10 3/uL 0.0-0.2 BASOPHIL # (test code=BA#) 0.04 x10 3/uL 0.0-0.2 NUCLEATED RBC # (test code=NRBC#) 0.00 x10 3/uL 0.0-0.1 MANUAL DIFF REQUIRED (test code=MDIFF) NO RBC [id number] 11:41:00* Test Item Value Reference Range Comments ANISOCYTOSIS (test code=ANISO) 2+ MICROCYTOSIS (test code=MICR) 2+ BASIC METABOLIC [id number] 07:33:00* Test Item Value Reference Range Comments SODIUM (test code=NA) 139 mEq/L 134-147 POTASSIUM (test code=K) 3.9 mEq/L 3.4-5.0 CHLORIDE (test code=CL) 108 mEq/L 100-108 CARBON DIOXIDE (test code=CO2) 25 mEq/L 21-33 ANION GAP (test code=GAP) 10 0-20 GLUCOSE (test code=GLU) 72 mg/dL 70-110 BLOOD UREA NITROGEN (test code=BUN) 10 mg/dL 7-18 GLOMERULAR FILTRATION RATE (test code=GFR) 83.9 95-105 Units of measure=ml/min/1.73 m2 CREATININE (test code=CREAT) 0.9 mg/dL 0.6-1.3 CALCIUM (test code=CA) 8.1 mg/dL 8.0-10.5 CBC W/AUTO [id number] 07:11:00* Test Item Value Reference Range Comments WHITE BLOOD CELL (test code=WBC) 9.17 x10 3/uL 4.5-11.0 RED BLOOD CELL (test code=RBC) 4.36 x10 6/uL 3.54-5.02 HEMOGLOBIN (test code=HGB) 9.8 g/dL 11.0-15.0 HEMATOCRIT (test code=HCT) 31.7 % 33.0-45.0 MEAN CELL VOLUME (test code=MCV) 72.7 fL 81.0-99.0 MEAN CELL HGB (test code=MCH) 22.5 pg 27.0-33.0 MEAN CELL HGB CONCETRATION (test code=MCHC) 30.9 g/dL 33.0-37.0 RED CELL DISTRIBUTION WIDTH CV (test code=RDW) 17.6 % 11.5-14.5 RED CELL DISTRIBUTION WIDTH SD (test code=RDW-SD) 45.8 fL 37.0-54.0 PLATELET COUNT (test code=PLT) 359 x10 3/uL 150-400 MEAN PLATELET VOLUME (test code=MPV) 10.7 fL 7.0-9.0 NEUTROPHIL % (test code=NT%) 60.5 % 56.0-77.0 IMMATURE GRANULOCYTE % (test code=IG%) 0.2 % 0.0-2.0 LYMPHOCYTE % (test code=LY%) 29.4 % 14.0-32.0 MONOCYTE % (test code=MO%) 6.2 % 4.8-9.0 EOSINOPHIL % (test code=EO%) 3.3 % 0.3-3.7 BASOPHIL % (test code=BA%) 0.4 % 0.0-2.0 NUCLEATED RBC % (test code=NRBC%) 0.0 % 0-0 NEUTROPHIL # (test code=NT#) 5.54 x10 3/uL 2.0-7.6 IMMATURE GRANULOCYTE # (test code=IG#) 0.02 x10 3/uL 0.00-0.03 LYMPHOCYTE # (test code=LY#) 2.70 x10 3/uL 1.0-3.8 MONOCYTE # (test code=MO#) 0.57 x10 3/uL 0.1-0.8 EOSINOPHIL # (test code=EO#) 0.30 x10 3/uL 0.0-0.2 BASOPHIL # (test code=BA#) 0.04 x10 3/uL 0.0-0.2 NUCLEATED RBC # (test code=NRBC#) 0.00 x10 3/uL 0.0-0.1 MANUAL DIFF REQUIRED (test code=MDIFF) NO RBC [id number] 07:11:00* Test Item Value Reference Range Comments ANISOCYTOSIS (test code=ANISO) CBC W/AUTO [id number] 07:11:00* Test Item Value Reference Range Comments WHITE BLOOD CELL (test code=WBC) 9.17 x10 3/uL 4.5-11.0 RED BLOOD CELL (test code=RBC) 4.36 x10 6/uL 3.54-5.02 HEMOGLOBIN (test code=HGB) 9.8 g/dL 11.0-15.0 HEMATOCRIT (test code=HCT) 31.7 % 33.0-45.0 MEAN CELL VOLUME (test code=MCV) 72.7 fL 81.0-99.0 MEAN CELL HGB (test code=MCH) 22.5 pg 27.0-33.0 MEAN CELL HGB CONCETRATION (test code=MCHC) 30.9 g/dL 33.0-37.0 RED CELL DISTRIBUTION WIDTH CV (test code=RDW) 17.6 % 11.5-14.5 RED CELL DISTRIBUTION WIDTH SD (test code=RDW-SD) 45.8 fL 37.0-54.0 PLATELET COUNT (test code=PLT) 359 x10 3/uL 150-400 MEAN PLATELET VOLUME (test code=MPV) 10.7 fL 7.0-9.0 NEUTROPHIL % (test code=NT%) 60.5 % 56.0-77.0 IMMATURE GRANULOCYTE % (test code=IG%) 0.2 % 0.0-2.0 LYMPHOCYTE % (test code=LY%) 29.4 % 14.0-32.0 MONOCYTE % (test code=MO%) 6.2 % 4.8-9.0 EOSINOPHIL % (test code=EO%) 3.3 % 0.3-3.7 BASOPHIL % (test code=BA%) 0.4 % 0.0-2.0 NUCLEATED RBC % (test code=NRBC%) 0.0 % 0-0 NEUTROPHIL # (test code=NT#) 5.54 x10 3/uL 2.0-7.6 IMMATURE GRANULOCYTE # (test code=IG#) 0.02 x10 3/uL 0.00-0.03 LYMPHOCYTE # (test code=LY#) 2.70 x10 3/uL 1.0-3.8 MONOCYTE # (test code=MO#) 0.57 x10 3/uL 0.1-0.8 EOSINOPHIL # (test code=EO#) 0.30 x10 3/uL 0.0-0.2 BASOPHIL # (test code=BA#) 0.04 x10 3/uL 0.0-0.2 NUCLEATED RBC # (test code=NRBC#) 0.00 x10 3/uL 0.0-0.1 MANUAL DIFF REQUIRED (test code=MDIFF) NO RBC [id number] 07:11:00* Test Item Value Reference Range Comments ANISOCYTOSIS (test code=ANISO) - CT ABD PELVIS [id number] 13:51:00 Name: YAYA SHIN [facility] [place] : 1980 Age/S: 38 / F [address] [place] [address] Unit #: [id number] Loc: [place] [address] Phys: Reji Davidson DO Acct: [id number] Dis Date: Status: REG ER PHONE #: [phone] Exam Date: 10/28/2018 1325 FAX #: [phone] Reason: abdominal pain diarrhea x 2 weeks;ulcerative co EXAMS: CPT CODE: [id number] CT ABD PELVIS W/CONT [id number] EXAM: CT ABDOMEN AND PELVIS WITH CONTRAST DATE: 10/28/2018 11:57 AM : 1980; Age: 38 years y/o Female INDICATION: Diffuse abdominal pain abdominal pain diarrhea x 2 weeks;ulcerative colitis COMPARISON: May 30, 2018 TECHNIQUE: Volumetric CT of the abdomen and pelvis is acquired following the intravenous administration of contrast. Axial, coronal and sagittal images are provided. IV contrast: 100 mL Isovue Enteric contrast: 500 mL Omni DLP: 563 mGy-cm CT imaging performed at this location utilizes radiation dose optimization techniques which include one or more of the following: -Automated exposure control -Adjustment of the mA and/or kV according to patient size -Use of iterative reconstruction technique FINDINGS: Lower thorax: Clear. Liver: Normal. Gallbladder: No calcified stones or wall thickening. Adrenals: Normal. Kidneys and ureters: Normal. Spleen: Normal. Pancreas: Nor mal. Gastrointestinal tract: Stomach: Not well distended whi ch limits evaluation Small bowel: Minimal thickening of distal ileum . Appendix: Surgically absent. No inflammation. Colon: Normal. Peritoneum, mesentery and retroperitoneum: Trace free fluid within the PAGE 1 Signed Report (CONTIN UED) [facility] 1980 Age/S: 38 / F [address] [place] [address] Unit #: [id number] Loc: [place] [address] Phys: Reji Davidson DO Acct: [id number] Dis Date: Status: REG ER PHONE #: [phone] Exam Date: 10/28/2018 1325 FAX #: Reason: abdominal pain diarrhea x 2 weeks;ulcerative co EXAMS: CPT CODE: [id number] CT ABD P VERN W/CONT 22758 <Continued> pelvis. Reproductive organs: Uterus is surgically absent. Small right adnexal cyst. Bladder: Normal. Soft tissues: Small fat-containing umbilical hernia. Bones: No acute abnormality. Age-related degenerative findings. IMPRESS ION: 1. Small right adnexal cyst is seen with trace free fl uid within the pelvis. This free fluid could be physiologic in nature v ersus related to recent ruptured cyst. 2. Minimal thickening of distal ileum, which may be secondary to incomplete distention versus zurita btle ileitis. 3. No bowel obstruction or drainable abscess. SL: [id number] at 1351 Reported and signed by: Vargas Mcginnis D.O. CC: Reji Davidson DO Technologist:Blake moffett, RT(R) CTDI: DLP: Trnscb Date/Time: 10/28/2018 (2665 ) [email or web address] Orig Print D/T: S: 10/28/2018 (1184) PAG E 2 Signed Report URINALYSIS [id number] 13:04:00* Test Item Value Reference Range Comments UA COLOR (test code=COLU) YELLOW YEL/STRAW UA APPEARANCE (test code=APPU) CLEAR CLEAR UA GLUCOSE DIPSTICK (test code=DGLUU) NEGATIVE NEGATIVE UA BILIRUBIN DIPSTICK (test code=BILU) NEGATIVE NEGATIVE UA KETONE DIPSTICK (test code=KETU) NEGATIVE NEGATIVE UA SPECIFIC GRAVITY (test code=SGU) 1.011 1.005-1.030 UA BLOOD DIPSTICK (test code=ALY) 1+ NEGATIVE UA PH DIPSTICK (test code=MILAGRO) 5.0 5.0-7.0 UA PROTEIN DIPSTICK (test code=PROU) NEGATIVE NEGATIVE UA UROBILINIOGEN DIPSTICK (test code=URO) 0.2 mg/dL 0.2-1.0 UA NITRITE DIPSTICK (test code=ALVINO) NEGATIVE NEGATIVE UA LEUKOCYTE ESTERASE DIPSTICK (test code=LEUU) NEGATIVE NEGATIVE UA WBC (test code=WBCU) 0-3 WBC/HPF 0-3 UA RBC (test code=RBCU) 4-10 RBC/HPF 0-3 UA BACTERIA (test code=BACU) NONE SEEN /HPF NONE SEEN UA SQUAMOUS CELLS (test code=SQU) 0-5 /HPF NONE SEEN UA MUCUS (test code=MUCU) TRACE /LPF NONE SEEN COMPREHENSIVE METABOLIC [id number] 12:57:00* Test Item Value Reference Range Comments SODIUM (test code=NA) 138 mEq/L 134-147 POTASSIUM (test code=K) 3.9 mEq/L 3.4-5.0 CHLORIDE (test code=CL) 110 mEq/L 100-108 CARBON DIOXIDE (test code=CO2) 22 mEq/L 21-33 ANION GAP (test code=GAP) 10 0-20 GLUCOSE (test code=GLU) 99 mg/dL 70-110 BLOOD UREA NITROGEN (test code=BUN) 13 mg/dL 7-18 GLOMERULAR FILTRATION RATE (test code=GFR) 83.9 95-105 Units of measure=ml/min/1.73 m2 CREATININE (test code=CREAT) 0.9 mg/dL 0.6-1.3 TOTAL PROTEIN (test code=PROT) 7.4 g/dL 6.4-8.2 ALBUMIN (test code=ALB) 3.50 g/dL 3.4-5.0 CALCIUM (test code=CA) 8.1 mg/dL 8.0-10.5 BILIRUBIN TOTAL (test code=BILT) 0.30 mg/dL 0.0-1.0 SGOT/AST (test code=AST) 11 IUnit/L 15-37 SGPT/ALT (test code=ALT) 17 IUnit/L 15-65 ALKALINE PHOSPHATASE TOTAL (test code=ALKP) 44 IUnit/L 20-125 [id number] 12:57:00* Test Item Value Reference Range Comments LIPASE (test code=LIP) 157 IUnit/L 73-393 [id number] 12:57:00* Test Item Value Reference Range Comments TROPONIN-I (test code=TROPI) < 0.015 ng/mL 0.000-0.045 Negative: <=0.045 Positive: >=0.046 Correlation with serial results, other cardiac markers andclinical findings is necessary to determine the clinicalsignificance of this result. Results using different methodologies should not be comparedto one another as quantitative results may vary by method. CBC W/AUTO [id number] 12:36:00* Test Item Value Reference Range Comments WHITE BLOOD CELL (test code=WBC) 12.37 x10 3/uL 4.5-11.0 RED BLOOD CELL (test code=RBC) 4.17 x10 6/uL 3.54-5.02 HEMOGLOBIN (test code=HGB) 9.5 g/dL 11.0-15.0 HEMATOCRIT (test code=HCT) 30.2 % 33.0-45.0 MEAN CELL VOLUME (test code=MCV) 72.4 fL 81.0-99.0 MEAN CELL HGB (test code=MCH) 22.8 pg 27.0-33.0 MEAN CELL HGB CONCETRATION (test code=MCHC) 31.5 g/dL 33.0-37.0 RED CELL DISTRIBUTION WIDTH CV (test code=RDW) 17.7 % 11.5-14.5 RED CELL DISTRIBUTION WIDTH SD (test code=RDW-SD) 45.5 fL 37.0-54.0 PLATELET COUNT (test code=PLT) 359 x10 3/uL 150-400 MEAN PLATELET VOLUME (test code=MPV) 10.3 fL 7.0-9.0 NEUTROPHIL % (test code=NT%) 66.0 % 56.0-77.0 IMMATURE GRANULOCYTE % (test code=IG%) 0.2 % 0.0-2.0 LYMPHOCYTE % (test code=LY%) 24.6 % 14.0-32.0 MONOCYTE % (test code=MO%) 6.1 % 4.8-9.0 EOSINOPHIL % (test code=EO%) 2.5 % 0.3-3.7 BASOPHIL % (test code=BA%) 0.6 % 0.0-2.0 NUCLEATED RBC % (test code=NRBC%) 0.0 % 0-0 NEUTROPHIL # (test code=NT#) 8.17 x10 3/uL 2.0-7.6 IMMATURE GRANULOCYTE # (test code=IG#) 0.02 x10 3/uL 0.00-0.03 LYMPHOCYTE # (test code=LY#) 3.04 x10 3/uL 1.0-3.8 MONOCYTE # (test code=MO#) 0.76 x10 3/uL 0.1-0.8 EOSINOPHIL # (test code=EO#) 0.31 x10 3/uL 0.0-0.2 BASOPHIL # (test code=BA#) 0.07 x10 3/uL 0.0-0.2 NUCLEATED RBC # (test code=NRBC#) 0.00 x10 3/uL 0.0-0.1 MANUAL DIFF REQUIRED (test code=MDIFF) NO BASIC METABOLIC [id number] 22:34:00* Test Item Value Reference Range Comments SODIUM (test code=NA) 138 mEq/L 134-147 POTASSIUM (test code=K) 3.8 mEq/L 3.4-5.0 CHLORIDE (test code=CL) 107 mEq/L 100-108 CARBON DIOXIDE (test code=CO2) 22 mEq/L 21-33 ANION GAP (test code=GAP) 13 0-20 GLUCOSE (test code=GLU) 95 mg/dL 70-110 BLOOD UREA NITROGEN (test code=BUN) 11 mg/dL 7-18 GLOMERULAR FILTRATION RATE (test code=GFR) 83.9 95-105 Units of measure=ml/min/1.73 m2 CREATININE (test code=CREAT) 0.9 mg/dL 0.6-1.3 CALCIUM (test code=CA) 8.5 mg/dL 8.0-10.5 HEPATIC FUNCTION [id number] 22:34:00* Test Item Value Reference Range Comments TOTAL PROTEIN (test code=PROT) 8.2 g/dL 6.4-8.2 ALBUMIN (test code=ALB) 3.40 g/dL 3.4-5.0 BILIRUBIN TOTAL (test code=BILT) 0.10 mg/dL 0.0-1.0 BILIRUBIN DIRECT (test code=BILD) < 0.10 MG/DL 0.0-0.30 BILIRUBIN INDIRECT (test code=BILIND) 0.00 MG/DL SGOT/AST (test code=AST) 14 IUnit/L 15-37 SGPT/ALT (test code=ALT) 16 IUnit/L 15-65 ALKALINE PHOSPHATASE TOTAL (test code=ALKP) 59 IUnit/L 20-125 [id number] 22:34:00* Test Item Value Reference Range Comments LIPASE (test code=LIP) 184 IUnit/L 73-393 BASIC METABOLIC [id number] 22:31:00* Test Item Value Reference Range Comments SODIUM (test code=NA) 138 mEq/L 134-147 POTASSIUM (test code=K) 3.8 mEq/L 3.4-5.0 CHLORIDE (test code=CL) 107 mEq/L 100-108 CARBON DIOXIDE (test code=CO2) 22 mEq/L 21-33 ANION GAP (test code=GAP) 13 0-20 GLUCOSE (test code=GLU) 95 mg/dL 70-110 BLOOD UREA NITROGEN (test code=BUN) 11 mg/dL 7-18 GLOMERULAR FILTRATION RATE (test code=GFR) 83.9 95-105 Units of measure=ml/min/1.73 m2 CREATININE (test code=CREAT) 0.9 mg/dL 0.6-1.3 CALCIUM (test code=CA) 8.5 mg/dL 8.0-10.5 HEPATIC FUNCTION [id number] 22:31:00* Test Item Value Reference Range Comments TOTAL PROTEIN (test code=PROT) g/dL 6.4-8.2 ALBUMIN (test code=ALB) 3.40 g/dL 3.4-5.0 BILIRUBIN TOTAL (test code=BILT) mg/dL 0.0-1.0 BILIRUBIN DIRECT (test code=BILD) < 0.10 MG/DL 0.0-0.30 SGOT/AST (test code=AST) 14 IUnit/L 15-37 SGPT/ALT (test code=ALT) 16 IUnit/L 15-65 ALKALINE PHOSPHATASE TOTAL (test code=ALKP) IUnit/L 20-125 [id number] 22:31:00* Test Item Value Reference Range Comments LIPASE (test code=LIP) 184 IUnit/L 73-393 - US TRANSVAGINAL NON [id number] 22:26:00 Name: YAYA SHIN [facility] : 1980 Age/S: 38 / F [address] [place], [place] [address] Unit #: [id number] Loc: [place] [address] Phys: EDDOC GENERIC FOR EDM Acct: [id number] Dis Date: Status: REG ER PHONE #: [phone] Exam Date: 09/17/20188 FAX #: [phone] Reason: R PELVIC PAIN EXAMS: CPT CODE: [id number] [place] [address] PROCEDURE: - US TRANSVAGINAL NON OB, - US PELVIS COMPLETE INDICATION: 38 years Female, R PELVIC PAIN. Status post hysterectomy and left oophorectomy COMPARISON: Abdominal CT 05/30/2018 TECHNIQUE: Sonographic evaluation of the pelvis is performed using high-resolution B-mode imaging, along with pulsed and color Doppler imaging. FINDINGS: TRANSABDOMINAL SCAN: Urinary bladder is not distended. Uterus is zurita rgically absent. Nonvisualized right ovary. No right adnexal abnormality . No left adnexal abnormality. TRANSVAGINAL SCAN: Transvaginal im aging is used for better evaluation of the endometrium and adnexal regions . No pelvic free fluid. Right ovary is identified measuring 3.8 x 2.4 x 2 .2 cm with arterial flow. Multiple simple right ovarian cysts with the la rgest measuring 2.5 cm. Trace right adnexal free fluid. Left ovary is ab sent. No left adnexal abnormality IMPRESSION: Trace right adnexal free fluid. Otherwise, negative status post hysterectomy and l eft oophorectomy. SL: KATJA at 2226 Reported and sign ed by: Andres Trejo M.D. CC: Technologist: Minna Jaimes RDMS(A) Trnscb Date/Time: 09/17/2018 (2225) [id number] Orig Print D/T: S: 09/17/2018 (2228) Probe: [id number] PAGE 1 Signed Report - US PELVIS COMPLETE 2018-09-17 22:26:00 Name: YAYA SHIN [facility] [place] : 1980 Age/S: 38 / F [address] [place] [address] Unit #: [id number] Loc: [place] [address] Phys: Catrachito Rizvi [employer] Acct: [id number] Dis Date: Status: REG ER PHONE #: [phone] Exam Date: 09/17/20182147 FAX #: [phone] Reason: R pelvic pain EXAMS: CPT CODE: [id number] US PELVIS COMPLETE 16224 PROCEDURE: - US TRANSVAGINAL NON OB, - US PELVIS COMPLETE INDICATION: 38 years Female, R PELVIC PAIN. Status post hysterectomy and left oophorectomy COMPARISON: Abdominal CT 05/30/2018 TECHNIQUE: Sonographic evaluation of the pelvis is performed using high- resolution B-mode imaging, along with pulsed and color Doppler imaging. FINDINGS: TRANSABDOMINAL SCAN: Urinary bladder is not distended. Uterus is surgically absent. Nonvisualized right ovary. No right adnexal abnormality. No left adnexal abnormality. TRANSVAGINAL SCAN: Transvaginal imaging is used for better evaluation of the endometrium and adnexal regions. No pelvic free fluid. Right ovary is identified measuring 3.8 x 2.4 x 2.2 cm with arterial flow. Multiple simple right ovarian cysts with the largest measuring 2.5 cm. Trace right adnexal free fluid. Left ovary is absent. No left adnexal abnormality IMPRESSION: Trace right adnexal free fluid. Otherwise, negative status post hysterectomy and left oophorectomy. SL: KATJA at 2226 Reported and signed by: Andres Trejo M.D. CC: Catrachito Rizvi NP Technologist: Minna Jaimes RDMS(Iris) Trnscb Date/Time: 09/17/2018 (2225) [id number] Orig Print D/T: S: 09/17/2018 (4634) Probe: PAGE 1 Signed Report URINALYSIS [id number] 22:17:00* Test Item Value Reference Range Comments UA COLOR (test code=COLU) YELLOW YEL/STRAW UA APPEARANCE (test code=APPU) CLEAR CLEAR UA GLUCOSE DIPSTICK (test code=DGLUU) NEGATIVE NEGATIVE UA BILIRUBIN DIPSTICK (test code=BILU) NEGATIVE NEGATIVE UA KETONE DIPSTICK (test code=KETU) NEGATIVE NEGATIVE UA SPECIFIC GRAVITY (test code=SGU) 1.016 1.005-1.030 UA BLOOD DIPSTICK (test code=ALY) 2+ NEGATIVE UA PH DIPSTICK (test code=MILAGRO) 5.0 5.0-7.0 UA PROTEIN DIPSTICK (test code=PROU) NEGATIVE NEGATIVE UA UROBILINIOGEN DIPSTICK (test code=URO) 0.2 mg/dL 0.2-1.0 UA NITRITE DIPSTICK (test code=ALVINO) NEGATIVE NEGATIVE UA LEUKOCYTE ESTERASE DIPSTICK (test code=LEUU) NEGATIVE NEGATIVE UA WBC (test code=WBCU) 0-3 WBC/HPF 0-3 UA RBC (test code=RBCU) NONE SEEN RBC/HPF 0-3 UA BACTERIA (test code=BACU) NONE SEEN /HPF NONE SEEN UA SQUAMOUS CELLS (test code=SQU) NONE SEEN /HPF NONE SEEN CBC W/AUTO [id number] 22:09:00* Test Item Value Reference Range Comments WHITE BLOOD CELL (test code=WBC) 12.06 x10 3/uL 4.5-11.0 RED BLOOD CELL (test code=RBC) 4.73 x10 6/uL 3.54-5.02 HEMOGLOBIN (test code=HGB) 10.6 g/dL 11.0-15.0 HEMATOCRIT (test code=HCT) 35.1 % 33.0-45.0 MEAN CELL VOLUME (test code=MCV) 74.2 fL 81.0-99.0 MEAN CELL HGB (test code=MCH) 22.4 pg 27.0-33.0 MEAN CELL HGB CONCETRATION (test code=MCHC) 30.2 g/dL 33.0-37.0 RED CELL DISTRIBUTION WIDTH CV (test code=RDW) 16.2 % 11.5-14.5 RED CELL DISTRIBUTION WIDTH SD (test code=RDW-SD) 43.9 fL 37.0-54.0 PLATELET COUNT (test code=PLT) 421 x10 3/uL 150-400 MEAN PLATELET VOLUME (test code=MPV) 10.4 fL 7.0-9.0 NEUTROPHIL % (test code=NT%) 66.6 % 56.0-77.0 IMMATURE GRANULOCYTE % (test code=IG%) 0.3 % 0.0-2.0 LYMPHOCYTE % (test code=LY%) 24.0 % 14.0-32.0 MONOCYTE % (test code=MO%) 6.4 % 4.8-9.0 EOSINOPHIL % (test code=EO%) 2.1 % 0.3-3.7 BASOPHIL % (test code=BA%) 0.6 % 0.0-2.0 NUCLEATED RBC % (test code=NRBC%) 0.0 % 0-0 NEUTROPHIL # (test code=NT#) 8.04 x10 3/uL 2.0-7.6 IMMATURE GRANULOCYTE # (test code=IG#) 0.04 x10 3/uL 0.00-0.03 LYMPHOCYTE # (test code=LY#) 2.89 x10 3/uL 1.0-3.8 MONOCYTE # (test code=MO#) 0.77 x10 3/uL 0.1-0.8 EOSINOPHIL # (test code=EO#) 0.25 x10 3/uL 0.0-0.2 BASOPHIL # (test code=BA#) 0.07 x10 3/uL 0.0-0.2 NUCLEATED RBC # (test code=NRBC#) 0.00 x10 3/uL 0.0-0.1 MANUAL DIFF REQUIRED (test code=MDIFF) NO - CT ANGIO [id number] 17:31:00 Name: YAYA SHIN [facility] : 1980 Age/S: 38 / F [address] [place], [place] [address]vd Unit #: [id number] Loc: [place] [address] Phys: Charisma Connolly MD Acct: [id number] Dis Date: Status: REG ER PHONE #: [phone] Exam Date: 08/22/2018 1703 FAX #: [phone] Reason: SOB EXAMS: CPT CODE: [id number] CT ANGIO CHEST [id number] Procedure: CT Pulmonary Angiogram. Clinical Indication: Chest pain and shortness of breath for 3 days. Comparison: Chest radiograph 08/22/2018. TECHNIQUE: Sequential trans-axial images were obtained thru the chest and upper abdomen after administration of 100 cc Isovue 300 iodinated contrast. Coronal and sagittal MIP and 3D reconstructions were obtained (CT pulmonary angiogram). CT imaging performed at this location utilizes radiation dose optimization techniques which include one or more of the following: - Automated exposure control -Adjustment of the mA and/or kV according to patient size -Use of iterative reconstruction technique CT Radiation Dose DLP 300 mGy-cm FINDINGS: LUNG PARENCHYMA AND PLEURA: There are no lung nodules. No focal consolidation or significant inters titial lung disease is observed and no pleural effusion is identified. Th ere is minimal subsegmental atelectasis at the left lung base. AIRWAY: The central airway is normal. . MEDIASTINUM: No s ignificant mediastinal lymphadenopathy. HEART: There is no eviden ce of RV strain. The cardiac chambers are otherwise unremarkable. There is no pericardial effusion. VASCULAR STRUCTURES: There are no seg mental pulmonary emboli noted. The main, right and left pulmonary arterie s are normal. The great vessels are unremarkable. The thoracic aorta is is free of aneurysm or dissection. The superior vena cava is unremarkable. VISUALIZED UPPER ABDOMEN: The visualized upper abdomen is within normal limits. OSSEOUS STRUCTURES: There are no definite signi ficant osseous abnormalities seen. IMPRESS ION: PAGE 1 Signed Report (CONTINU ED) Name: [facility]IN [facility] [facility] Jonelle Nicole : 1980 Age/S: 38 / F [address] [place], [place] [address]vd Unit #: [id number] Loc: [place] [address] Phys: Kiara Connolly MD Acct: [id number] Dis Date: Status: REG ER PHONE #: [phone] Exam Date: 08/22/20181707 FAX #: Reason: SOB EXAMS: CPT CODE: [id number] CT ANGIO CHEST 33918 <Continued> 1. No evidence of pulmonary emboli. 2. Minimal left lower lobe subsegmental atelectasis. SL: CY-H at 1731 Reported and signed by: Patel Greer M.D. CC: Charisma Connolly MD Technologist:Ashley Pryor RT(R)(CT) CTDI: DLP: Trnscb Date/Time: 08/22/2018 (1730) tCHATATDO Orig Print D/T: S: 08/22/2018 (9966) CTDI: DLP: PAGE 2 Signed Report - DUP VEIN UNI/[id number] 17:02:00 Name: YAYA SHIN [facility] : 1980 Age/S: 38 / F [address] [place] [address] Unit #: [id number] Loc: [place] [address] Phys: Charisma Connolly MD Acct: [id number] Dis Date: Status: REG ER PHONE #: Exam Date: 08/22/20188 FAX #: Reason: acute R calf pain EXAMS: CPT CODE: [id number] DUP VEIN UNI/ LTD 18467 RIGHT LOWER EXTREMITY LEXI OUS DUPLEX ULTRASOUND INDICATION: Acute right calf pain. Dyspne a TECHNIQUE: Venous duplex ponce scale, color Doppler and spectral Doppler ultrasound of the right lower extremity was performed. COMPARISONS: None similar FINDINGS: The common fe moral, superficial femoral, popliteal, and posterior tibial veins are comp letely compressible, reveal spontaneous and phasic flow and augmentation. The greater saphenous vein reveals no thrombus. IMPRESSION: 1. No DVT detected. Elect ronically Signed by Bebe Patel on 08/22/2018 at 1702 Reported and signed by: Nabor box D.O. CC: Charisma Connolly MD Technologist: Kayley Andre RDMS(OB)(AB) Trnscb Date/Time: 08/22/2018 (2761) [email or web address] Orig Print D/T: S: 08/22/2018 (9758) Probe: PAGE 1 Signed Report B-TYPE NATRIURETIC [id number] 17:01:00* Test Item Value Reference Range Comments B-TYPE NATRIURETIC PEPTIDE (test code=BNP) 15.6 PG/ML 0-100 BASIC METABOLIC [id number] 16:50:00* Test Item Value Reference Range Comments SODIUM (test code=NA) 143 mEq/L 134-147 POTASSIUM (test code=K) 4.1 mEq/L 3.4-5.0 CHLORIDE (test code=CL) 105 mEq/L 100-108 CARBON DIOXIDE (test code=CO2) 30 mEq/L 21-33 ANION GAP (test code=GAP) 12 0-20 GLUCOSE (test code=GLU) 77 mg/dL 70-110 BLOOD UREA NITROGEN (test code=BUN) 11 mg/dL 7-18 GLOMERULAR FILTRATION RATE (test code=GFR) 74.3 95-105 Units of measure=ml/min/1.73 m2 CREATININE (test code=CREAT) 1.0 mg/dL 0.6-1.3 CALCIUM (test code=CA) 8.7 mg/dL 8.0-10.5 HEPATIC FUNCTION [id number] 16:50:00* Test Item Value Reference Range Comments TOTAL PROTEIN (test code=PROT) 8.7 g/dL 6.4-8.2 ALBUMIN (test code=ALB) 3.90 g/dL 3.4-5.0 BILIRUBIN TOTAL (test code=BILT) 0.30 mg/dL 0.0-1.0 BILIRUBIN DIRECT (test code=BILD) < 0.10 MG/DL 0.0-0.30 BILIRUBIN INDIRECT (test code=BILIND) 0.20 MG/DL SGOT/AST (test code=AST) 10 IUnit/L 15-37 SGPT/ALT (test code=ALT) 18 IUnit/L 15-65 ALKALINE PHOSPHATASE TOTAL (test code=ALKP) 54 IUnit/L 20-125 [id number] 16:50:00* Test Item Value Reference Range Comments MAGNESIUM (test code=MAG) 2.10 mg/dL 1.8-2.4 PROTHROMBIN [id number] 16:45:00* Test Item Value Reference Range Comments PROTHROMBIN TIME PATIENT (test code=PTP) 12.1 SECONDS 9.3-12.9 INTERNATIONAL NORMAL RATIO (test code=INR) 1.1 0.8-1.2 TARGET INR BY INDICATION Indication INR1. Prophylaxis of venous thrombosis 2.0 - 3.0 (orthopedic surgery), Prophylaxis of venous thrombosis (other than high-risk surgery), Treatment of Deep Vein Thrombosis/Pulmonary Embolism, Prevention of systemic embolism - Tissue heart valves, Acute Myocardial Infarction (to prevent systemic embolism), Valvular heart disease, Atrial Fibrillation, Bileaflet mechanical valve in aortic position.2. Mechanical prosthetic valves (high risk), 2.5 - 3.5 Presence of Lupus Anticoagulant or Antiphospholipid Antibodies, Prevention of systemic embolism - Acute Myocardial Infarction (to prevent recurrent infarct). THROMBOPLASTIN TIME [id number] 16:45:00* Test Item Value Reference Range Comments THROMBOPLASTIN TIME PARTIAL (test code=PTT) 34.0 Seconds 25.0-39.5 Therapeutic Range: 61.8-83.8 Sec Effective 06/08/2013 - XR CHEST 1 [id number] 16:45:00 FAX: Charisma Morales MD [phone] [place]: St: REG Name: YAYA OWUSU [facility] : [birth year] Age/S: 38/F [address] [place] [address] Unit #: [id number] Loc: [place] [address] Phys: Charisma Connolly MD Acct: [id number] Dis Date: Status: REG ER PHONE #: [phone] Exam Date: 08/22/2018 1633 FAX #: [phone] Reason: SOB EXAMS: CPT CODE: [id number] XR CHEST 1 V 18452 PROCEDURE: Chest Radiograph. Clinical Indication: Shortness of breath for several days. Comparison: Chest radiograph 05/30/2018. FINDINGS: The chest shows normal lung volumes without interstitial or airspace opa cities, pleural effusions or pneumothorax. The heart size and pulmonary vasculature are normal. The trachea is midline. There are no clinically significant osseous abnormalities noted. IMP RESSION: 1. No chest radiographic evidence of acute cardiopulmonary dise ase. SL: CY-H Electro nically Signed by Pepe Greer on 08/23/19 19 at 1645 Reported and signed by: Patel Bonilla M.D. CC: Charisma Connolly MD Technologist: Jocelyne Ferreira, RT(R) T rnscrd Date/Time/By: 08/22/2018 (075) : By: CindyTDO Orig Print D/T: S: 08/22/2018 (4193) PAGE 1 Sign ed Report CBC W/AUTO [id number] 16:36:00* Test Item Value Reference Range Comments WHITE BLOOD CELL (test code=WBC) 8.27 x10 3/uL 4.5-11.0 RED BLOOD CELL (test code=RBC) 5.10 x10 6/uL 3.54-5.02 HEMOGLOBIN (test code=HGB) 11.4 g/dL 11.0-15.0 HEMATOCRIT (test code=HCT) 36.6 % 33.0-45.0 MEAN CELL VOLUME (test code=MCV) 71.8 fL 81.0-99.0 MEAN CELL HGB (test code=MCH) 22.4 pg 27.0-33.0 MEAN CELL HGB CONCETRATION (test code=MCHC) 31.1 g/dL 33.0-37.0 RED CELL DISTRIBUTION WIDTH CV (test code=RDW) 16.1 % 11.5-14.5 RED CELL DISTRIBUTION WIDTH SD (test code=RDW-SD) 41.6 fL 37.0-54.0 PLATELET COUNT (test code=PLT) 445 x10 3/uL 150-400 MEAN PLATELET VOLUME (test code=MPV) 10.3 fL 7.0-9.0 NEUTROPHIL % (test code=NT%) 58.6 % 56.0-77.0 IMMATURE GRANULOCYTE % (test code=IG%) 0.2 % 0.0-2.0 LYMPHOCYTE % (test code=LY%) 32.2 % 14.0-32.0 MONOCYTE % (test code=MO%) 7.0 % 4.8-9.0 EOSINOPHIL % (test code=EO%) 1.3 % 0.3-3.7 BASOPHIL % (test code=BA%) 0.7 % 0.0-2.0 NUCLEATED RBC % (test code=NRBC%) 0.0 % 0-0 NEUTROPHIL # (test code=NT#) 4.84 x10 3/uL 2.0-7.6 IMMATURE GRANULOCYTE # (test code=IG#) 0.02 x10 3/uL 0.00-0.03 LYMPHOCYTE # (test code=LY#) 2.66 x10 3/uL 1.0-3.8 MONOCYTE # (test code=MO#) 0.58 x10 3/uL 0.1-0.8 EOSINOPHIL # (test code=EO#) 0.11 x10 3/uL 0.0-0.2 BASOPHIL # (test code=BA#) 0.06 x10 3/uL 0.0-0.2 NUCLEATED RBC # (test code=NRBC#) 0.00 x10 3/uL 0.0-0.1 MANUAL DIFF REQUIRED (test code=MDIFF) NO PROCALCITONIN (PCT)2018-05-30 14:38:00* Test Item Value Reference Range Comments PROCALCITONIN (PCT) (test code=PROCAL) 0.32 ng/mL 0.00-0.05 PROCALCITONIN (PCT) NORMAL RANGE (ADULT): <0.05 NG/ML. * a concentration <0.5 ng/mL represents a low risk of severe sepsis and/or septic shock.* a concentration >2 ng/mL represents a high risk of severe sepsis and/or septic shock.Nevertheless, concentrations <0.5 ng/mL do not exclude aninfection, on account of localized infections (withoutsystemic signs) which can be associated with such lowconcentrations, or a systemic infection in its initialstages (< 6 hours). Furthermore, increased procalcitonincan occur without infection. PCT concentrations between 0.5and 2.0 ng/mL should be interpreted taking into account thepatient's history. It is recommended to retest PCT within6-24 hours if any concentrations <2 ng/mL are obtained. - CT ABD PELVIS [id number] 14:26:00 Name: YAYA SHIN : 1980 Age/S: 37 / F [address] [place] [address] Unit #: [id number] Loc: [place] [address] Phys: Cara Interiano INSTRUCTOR PHYSICAL EDUCATION Acct: [id number] Dis Date: Status: REG ER PHONE #: [phone] Exam Date: 05/30/2018 1402 FAX #: [phone] Reason: s/p appendectomy 1wk; drainage from incision si EXAMS: CPT CODE: [id number] CT ABD PELVIS W/CONT 34479 Procedure: CT Abdomen/Pelvis with IV and Oral Contrast. Clinical Indication: Status post appendectomy last week, drainage from incision site. Comparison: CT scan of the abdomen and pelvis 05/21/2018. TECHNIQUE: Helical imaging was performed diaphragm through the symphysis with multiplanar reformations obtained. IV CONTRAST: 100 mL Isovue 300. GI CONTRAST: Diluted Gastrografin. CT imaging performed at this location utilizes radiation dose optimization techniques which include one or more of the following: -Automated exposure control -Adjustment of the mA and/or kV according to patient size - Use of iterative reconstruction technique CT Radiation Dose DLP 502 mGy-cm FINDINGS: LOWER CHEST: The lung bases are clear. SOLID ORGANS: The liver, gallbladder, spleen, pancreas, adrenal glands and kidneys are normal. BOWEL: There is wall thickening and enhancement of the left hemicolon with stranding in the adjacent mesentery and multiple small mesenteric lymph nodes. There is extensive retained fecal matter throughout the right hemicolon. The patient is status post appendectomy. There is stranding at the level of the umbilicus likely representing a trocar site, without definitive subcu taneous abscess formation. PERITONEUM: No free intraperitoneal flu id or air. RETROPERITONEUM: No adenopathy. The abdominal a richard is normal. PELVIS: No pelvic mass. The urinary bladder is no rmal. The patient has had previous hysterectomy. MUSCULOSKE LETAL: The skeleton is intact. IMPRESSION: 1. Findings consistent with colitis involving the left hemicolon. 2. Status post ap pendectomy with stranding at the trocar site at the level of the umbilic us however no subcutaneous abscess is identified. PAGE 1 Signed Report (CONTINUED) Name: YAYA SHIN [facility] : 1980 Age/S: 37 / F [address] [place] [address] Unit #: [id number] Loc: [place] [address] Phys: Cara Interiano Acct: [id number] Dis Date: Status: R EG ER PHONE #: [phone] Exam Date: 05/12 1402 FAX #: [phone] Reason: s/p appendecto my 1wk; drainage from incision si EXAMS: CPT CODE: [id number] CT ABD PELVIS W/CONT 7 4177 <Continued> SL: CY-H at 1426 Reported and signed by: Ptael Greer M.D. CC: Cara Interiano Technologist:Maciel Lawson, RT(R) CTDI: DLP: Trnscb Date/Time: 05/30/2018 (1426) tCHATATDO PAGE 2 Signed Report - XR CHEST 1 V 2018-05-30 14:13:00 FAX: Cara Interiano [phone] [place]: St: REG Name: YAYA OWUSU [facility] : [birth year] Age/S: 37/F [address] [place] [address] Unit #: [id number] Loc: [place] [address] Phys: Cara Interiano Acct: [id number] Dis Date: Status: REG ER PHONE #: [phone] Exam Date: 05/30/2018 1406 FAX #: [phone] Reason: sepsis workup EXAMS: CPT CODE: [id number] XR CHEST 1 V 33506 CHEST, SINGLE VIEW H ISTORY: Sepsis No comparison. FINDINGS: The lungs are clear. The heart size and pulmonary vascularity are with in normal limits. IMPRESSION: No active proces s. SL:01 at 1413 Reported and signed by: Kaiden Wilkersno M.D. CC: Cara Interiano Technologist: Suzie Rogers, RT(R); Jocelyne Ferreira, RT(R) Trnscrd Da te/Time/By: 05/30/2018 (7376) : By: Debbie Orig Print D/T: S: 05/30 (9712) PAGE 1 Signed Report URINALYSIS [id number] 14:10:00* Test Item Value Reference Range Comments UA COLOR (test code=COLU) YELLOW YEL/STRAW UA APPEARANCE (test code=APPU) CLEAR CLEAR UA GLUCOSE DIPSTICK (test code=DGLUU) NEGATIVE NEGATIVE UA BILIRUBIN DIPSTICK (test code=BILU) NEGATIVE NEGATIVE UA KETONE DIPSTICK (test code=KETU) NEGATIVE NEGATIVE UA SPECIFIC GRAVITY (test code=SGU) 1.010 1.005-1.030 UA BLOOD DIPSTICK (test code=ALY) 3+ NEGATIVE UA PH DIPSTICK (test code=MILAGRO) 7.0 5.0-7.0 UA PROTEIN DIPSTICK (test code=PROU) 1+ NEGATIVE UA UROBILINIOGEN DIPSTICK (test code=URO) 0.2 mg/dL 0.2-1.0 UA NITRITE DIPSTICK (test code=ALVINO) NEGATIVE NEGATIVE UA LEUKOCYTE ESTERASE DIPSTICK (test code=LEUU) NEGATIVE NEGATIVE UA WBC (test code=WBCU) 0-3 WBC/HPF 0-3 UA RBC (test code=RBCU) 4-10 RBC/HPF 0-3 UA BACTERIA (test code=BACU) TRACE /HPF NONE SEEN UA SQUAMOUS CELLS (test code=SQU) 0-5 /HPF NONE SEEN UA MUCUS (test code=MUCU) 1+ /LPF NONE SEEN UA CULT [id number] 14:10:00* Test Item Value Reference Range Comments UA CULTURE NEEDED? (test code=UACULT) NO, WBC<10 Criteria Culture Chk Criteria not met, Urine Culture cancelled. URINALYSIS [id number] 14:08:00* Test Item Value Reference Range Comments UA COLOR (test code=COLU) YELLOW YEL/STRAW UA APPEARANCE (test code=APPU) CLEAR CLEAR UA GLUCOSE DIPSTICK (test code=DGLUU) NEGATIVE NEGATIVE UA BILIRUBIN DIPSTICK (test code=BILU) NEGATIVE NEGATIVE UA KETONE DIPSTICK (test code=KETU) NEGATIVE NEGATIVE UA SPECIFIC GRAVITY (test code=SGU) 1.010 1.005-1.030 UA BLOOD DIPSTICK (test code=ALY) 3+ NEGATIVE UA PH DIPSTICK (test code=MILAGRO) 7.0 5.0-7.0 UA PROTEIN DIPSTICK (test code=PROU) 1+ NEGATIVE UA UROBILINIOGEN DIPSTICK (test code=URO) 0.2 mg/dL 0.2-1.0 UA NITRITE DIPSTICK (test code=ALVINO) NEGATIVE NEGATIVE UA LEUKOCYTE ESTERASE DIPSTICK (test code=LEUU) NEGATIVE NEGATIVE UA WBC (test code=WBCU) WBC/HPF 0-3 UA RBC (test code=RBCU) RBC/HPF 0-3 UA CULT [id number] 14:08:00* Test Item Value Reference Range Comments UA CULTURE NEEDED? (test code=UACULT) Criteria Culture Chk HCG SERUM [id number] 13:38:00* Test Item Value Reference Range Comments HCG SERUM QUAL (test code=HCGQL) SERUM NEGATIVE NEGATIVE BASIC METABOLIC [id number] 13:36:00* Test Item Value Reference Range Comments SODIUM (test code=NA) 136 mEq/L 134-147 POTASSIUM (test code=K) 3.3 mEq/L 3.4-5.0 CHLORIDE (test code=CL) 102 mEq/L 100-108 CARBON DIOXIDE (test code=CO2) 26 mEq/L 21-33 ANION GAP (test code=GAP) 11 0-20 GLUCOSE (test code=GLU) 109 mg/dL 70-110 BLOOD UREA NITROGEN (test code=BUN) 10 mg/dL 7-18 GLOMERULAR FILTRATION RATE (test code=GFR) 96.6 105-110 Units of measure=ml/min/1.73 m2 CREATININE (test code=CREAT) 0.8 mg/dL 0.6-1.3 CALCIUM (test code=CA) 7.8 mg/dL 8.0-10.5 HEPATIC FUNCTION [id number] 13:36:00* Test Item Value Reference Range Comments TOTAL PROTEIN (test code=PROT) 7.4 g/dL 6.4-8.2 ALBUMIN (test code=ALB) 2.40 g/dL 3.4-5.0 BILIRUBIN TOTAL (test code=BILT) 0.20 mg/dL 0.0-1.0 BILIRUBIN DIRECT (test code=BILD) < 0.10 MG/DL 0.0-0.30 BILIRUBIN INDIRECT (test code=BILIND) 0.10 MG/DL SGOT/AST (test code=AST) 16 IUnit/L 15-37 SGPT/ALT (test code=ALT) 15 IUnit/L 15-65 ALKALINE PHOSPHATASE TOTAL (test code=ALKP) 55 IUnit/L 20-125 CBC W/AUTO [id number] 13:33:00* Test Item Value Reference Range Comments WHITE BLOOD CELL (test code=WBC) 14.60 x10 3/uL 4.5-11.0 RED BLOOD CELL (test code=RBC) 4.70 x10 6/uL 3.54-5.02 HEMOGLOBIN (test code=HGB) 10.5 g/dL 11.0-15.0 HEMATOCRIT (test code=HCT) 35.1 % 33.0-45.0 MEAN CELL VOLUME (test code=MCV) 74.7 fL 81.0-99.0 MEAN CELL HGB (test code=MCH) 22.3 pg 27.0-33.0 MEAN CELL HGB CONCETRATION (test code=MCHC) 29.9 g/dL 33.0-37.0 RED CELL DISTRIBUTION WIDTH CV (test code=RDW) 16.8 % 11.5-14.5 RED CELL DISTRIBUTION WIDTH SD (test code=RDW-SD) 45.2 fL 37.0-54.0 PLATELET COUNT (test code=PLT) 634 x10 3/uL 150-400 MEAN PLATELET VOLUME (test code=MPV) 9.3 fL 7.0-9.0 NEUTROPHIL % (test code=NT%) 73.4 % 56.0-77.0 IMMATURE GRANULOCYTE % (test code=IG%) 1.2 % 0.0-2.0 LYMPHOCYTE % (test code=LY%) 15.7 % 14.0-32.0 MONOCYTE % (test code=MO%) 7.1 % 4.8-9.0 EOSINOPHIL % (test code=EO%) 2.3 % 0.3-3.7 BASOPHIL % (test code=BA%) 0.3 % 0.0-2.0 NUCLEATED RBC % (test code=NRBC%) 0.0 % 0-0 NEUTROPHIL # (test code=NT#) 10.71 x10 3/uL 2.0-7.6 IMMATURE GRANULOCYTE # (test code=IG#) 0.18 x10 3/uL 0.00-0.03 LYMPHOCYTE # (test code=LY#) 2.29 x10 3/uL 1.0-3.8 MONOCYTE # (test code=MO#) 1.04 x10 3/uL 0.1-0.8 EOSINOPHIL # (test code=EO#) 0.34 x10 3/uL 0.0-0.2 BASOPHIL # (test code=BA#) 0.04 x10 3/uL 0.0-0.2 NUCLEATED RBC # (test code=NRBC#) 0.00 x10 3/uL 0.0-0.1 MANUAL DIFF REQUIRED (test code=MDIFF) NO BASIC METABOLIC [id number] 13:30:00* Test Item Value Reference Range Comments SODIUM (test code=NA) 136 mEq/L 134-147 POTASSIUM (test code=K) 3.3 mEq/L 3.4-5.0 CHLORIDE (test code=CL) 102 mEq/L 100-108 CARBON DIOXIDE (test code=CO2) 26 mEq/L 21-33 ANION GAP (test code=GAP) 11 0-20 GLUCOSE (test code=GLU) 109 mg/dL 70-110 BLOOD UREA NITROGEN (test code=BUN) 10 mg/dL 7-18 GLOMERULAR FILTRATION RATE (test code=GFR) 96.6 105-110 Units of measure=ml/min/1.73 m2 CREATININE (test code=CREAT) 0.8 mg/dL 0.6-1.3 CALCIUM (test code=CA) 7.8 mg/dL 8.0-10.5 HEPATIC FUNCTION [id number] 13:30:00* Test Item Value Reference Range Comments TOTAL PROTEIN (test code=PROT) g/dL 6.4-8.2 ALBUMIN (test code=ALB) 2.40 g/dL 3.4-5.0 BILIRUBIN TOTAL (test code=BILT) mg/dL 0.0-1.0 BILIRUBIN DIRECT (test code=BILD) < 0.10 MG/DL 0.0-0.30 SGOT/AST (test code=AST) 16 IUnit/L 15-37 SGPT/ALT (test code=ALT) 15 IUnit/L 15-65 ALKALINE PHOSPHATASE TOTAL (test code=ALKP) IUnit/L 20-125 TROPONIN-I [id number] 13:10:00* Test Item Value Reference Range Comments TROPONIN-I RAPID (test code=TROPIRAP) 0.00 ng/mL 0.00-0.08 Performed by certified tile power shear operator at [facility] Global Task Force with joint leadership from the EuropeanSociety of Cardiology (ESC), the [place] College [employer] Foundation (ACCF), the [place] Heart Association(AHA) and the World Heart Federation (WHF) refined past criteria of myocardial infarction (MT) with a universal definition of myocardial infarction that supports the use of cTnI as a preferred biomarker for myocardial injury. The universal definition of MT, according to this taskforce, is defined as a typical rise and gradual fall ofcardiac biomarkers (preferably troponin) with at least onevalue above the 99th percentile of the upper reference limit (URL) together with evidence of myocardial ischemia with at least one of the following:* ischemic symptoms,* pathological Q waves on electrocardiogram (ECG),* ischemic ECG changes,* or imaging evidence of new loss of viable myocardium or new regional wall motion abnormality. An elevated troponin value alone is not sufficient todiagnose a myocardial infarction. Rather, the patient sclinical presentation (history, physical exam) and ECGshould be used in conjunction with troponin in thediagnostic evaluation of suspected myocardial infarction. Aserial sampling protocol is recommended to facilitate the identification of temporal changes in troponin levels characteristic of MT. LACTIC ACID [id number] 12:51:00* Test Item Value Reference Range Comments LACTIC ACID POC (test code=LACTP) 1.7 MMOL/L 0.90-1.70 Performed by certified tile power shear operator at [facility] SURGICAL [id number] 08:22:00 RUN DATE: 05/26/18 [facility] *LIVE* PAGE 1 RUN TIME: 822 Specimen Inqui ry RUN USER: INTERFACE PATIENT: YAYA SHIN ACCT #: [id number] LOC: Les1SOC U #: [id number] AGE/SX: 37/F ROOM: [facility] RE05/21/18REG DR: Olga Mendiola MD : 76 BED: 1 DIS: 05/22/18 STATUS: DIS IN TLOC: SPEC #: [id number] RECD: 05/24/18 STATUS: SANJANA REQ #: [id number] NATALIE: 05/24/[address]: Olga Mendiola MD ENTERED: 05/26/18 SP TYPE: SURG SPEC OTHR DR: Alissa mcdonald or Family Physician Self Referred Und efined ProviderORDERED: GM LEVEL 4 CODES: [id number] - APPENDIX, NOS COPIES TO: No Primary or Family Physician Self Referred Undefined Provider MauryIn Avril LIZAMA [address] [place] [address] [address] [place] [address] PROCEDURES: JOSE JUAN JOYNER 4 (Incomplete) TISSUES: 1. APPENDIX, NOS - Appendix FINAL DIAGNOSIS Appendix: Acute appendicitis. GROSS AND MICROSCOPIC GROSS EXAMINATION: Received in formalin labeled appendix is a 7 cm in length 1.1 cm in diameter vermiform appendix with external fibrinous exudate s ubmitted in one cassette. MICROSCOPIC E XAMINATION: Sections of the appendix reveal acute inflammation involving mucos a extending into the wall. POST-OP DIAG NOSIS Acute appendicitis CONTINUED ON NEXT PAGE RUN DATE: 05/26/18 [facility] *LIVE* PAGE 2 RUN TIME: 0823 S vangie Inquiry RUN USER: INTERFACE SPEC #: [id number] PATIENT: YAYA SHIN #[id number] (Continued) P RE-OP DIAGNOSIS Acute appendicitis REVIEWED BY: XR Signed SIGNATURE ON FILE Ayaan Martínez DO 05/26/18 0822 END OF REPORT
[2018-12-09] MEDS ORDERED: KETOROLAC TROMETHAMINE 30 MG/ML VIAL IV ONE (18:06)
[2018-12-09] MEDS ORDERED: SODIUM CHLORIDE 0.9% 1000ML 1,000 ML IV STA (18:06)
[2018-12-09] MEDS ORDERED: DIPHENHYDRAMINE HCL INJ 50 MG/ML VIAL IV ONE (18:15)
[2018-12-09] MEDS ORDERED: METOCLOPRAMIDE HCL 10 MG/2ML VIAL IV ONE (18:15)
--- NOTE | 2018-12-09 18:58 | Diagnostic Imaging Report ---
Examination: CT BRAIN WO NONCONTRAST History:Headaches with past 5 days Comparison studies:None Technique: Axial images were obtained from the skull base to the vertex. Coronal and sagittal images reconstructed from the axial data. Dose modulation, iterative reconstruction, and/or weight based adjustment of the mA/kV was utilized to reduce the radiation dose to as low as reasonably achievable. Intravenous contrast: None Findings: Scalp: No abnormalities. Bones: No fractures, blastic or lytic lesions. Brain sulci: Appropriate for age. Ventricles: Normal in size and configuration. No hydrocephalus. Extra-axial space: No abnormalities. Parenchyma: No abnormal densities. No masses, hemorrhage, or acute or chronic cortical based vascular insults.. Sellar/suprasellar region: No abnormalities. Craniocervical junction: Patent foramen magnum. No Chiari one malformation. Incidental findings: None. Impression: No intracranial abnormalities. Signed by: Dr. Marcy Anderson M.D. on 12/09/2018 7:02 PM
--- NOTE | 2018-12-09 19:04 | NUR ---
REPORT TO DEDE
[2018-12-09 19:09] LABS: BASOPHILS # (AUTO) 0.1 (0.0-0.1); BASOPHILS % 0.3 % (0.0-1.0); EOSINOPHILS # (AUTO) 0.1 (0.0-0.4); EOSINOPHILS % 0.5 % (0.0-6.0); HEMATOCRIT 32.7 % (34.2-44.1); HEMOGLOBIN 10.5 g/dL (12.0-16.0); LYMPHOCYTES % 12.8 % (18.0-39.1); MEAN CORPUSCULAR HEMOGLOBIN 23.4 pg (28-32); MEAN CORPUSCULAR HGB CONC 32.1 g/dL (31-35); MONOCYTES # (AUTO) 0.9 (0.2-0.8); MONOCYTES % 5.6 % (4.4-11.3); NEUTROPHILS # (AUTO) 12.3 (2.1-6.9); NEUTROPHILS % 80.3 % (38.7-80.0); PLATELET COUNT 419 x10e3/uL (140-360); RED BLOOD COUNT 4.48 x10e6/uL (3.6-5.1); RED CELL DISTRIBUTION WIDTH 18.2 % (11.7-14.4)
[2018-12-09 19:14] LABS: BILIRUBIN,URINE NEGATIVE (NEGATIVE); CLARITY,URINE CLEAR (CLEAR); COLOR,URINE YELLOW (YELLOW); KETONES,URINE NEGATIVE (NEGATIVE); LEUKOCYTE ESTERASE ,URINE NEGATIVE (NEGATIVE); NITRITE,URINE NEGATIVE (NEGATIVE); PROTEIN,URINE DIPSTICK NEGATIVE (NEGATIVE); URINE UROBILINOGEN 0.2 mg/dL (0.2 - 1)
[2018-12-09 19:26] LABS: BACTERIA,URINE FEW /HPF; RBC,URINE 0-5 /HPF (0-5)
[2018-12-09 19:27] LABS: PREGNANCY TEST, URINE NEGATIVE (NEGATIVE)
[2018-12-09 20:07] LABS: ALANINE AMINOTRANSFERASE 14 IU/L (0-55); ALBUMIN 3.7 g/dL (3.5-5.0); ALBUMIN/GLOBULIN RATIO 0.8 (0.8-2.0); ALKALINE PHOSPHATASE 51 IU/L (40-150); ANION GAP 17.6 mmol/L (8-16); BLOOD UREA NITROGEN 16 mg/dL (7-26); BUN/CREATININE RATIO 19 (6-25); CALCIUM 9.3 mg/dL (8.4-10.2); CARBON DIOXIDE 21 mmol/L (22-29); CHLORIDE 102 mmol/L (98-107); CREATINE KINASE 358 IU/L (29-168); CREATININE, SERUM 0.85 mg/dL (0.57-1.11); EST GLOMERULAR FILTRATION RATE > 60 ML/MIN (60-); GLUCOSE 88 mg/dL (74-118); POTASSIUM 4.6 mmol/L (3.5-5.1); SODIUM 136 mmol/L (136-145)
[2018-12-09 20:59] VITALS: BP 126/74
== END 2018-12-09 20:40 | disposition home or self-care (01) ==
LOC: ER 17:43
DX: G44.211 Episodic tension-type headache, intractable (principal); R11.2 Nausea with vomiting, unspecified; Z88.1 Allergy status to other antibiotic agents; Z88.0 Allergy status to penicillin
CPT/HCPCS: 36415; 70450; 80053; 81001; 81025; 82550; 82553; 84484; 85025; 87086; 93005; 99284; J1200; J1885; J2765; J7030